=== PATIENT | male | born 1935 | race American Indian/Alaskan Native ===

== ENCOUNTER 2018-07-03 18:18 | Emergency (ER) | payer MEDICARE, MEDICAID ==
--- NOTE | 2018-07-03 18:58 | Emergency Department Report ---
Blank Doc - Documentation Documentation: pt presents with BLE edema and BLE pain that began two days ago PMHx none no daily meds no allergies to medications +smoker non drinker no drug use
[2018-07-03 19:30] LABS: Basophils # (Auto) 0.1 K/mm3 (0.0-0.1); Basophils % (Auto) 1.9 % (0.0-1.8); Eosinophils # (Auto) 0.1 K/mm3 (0.0-0.4); Eosinophils % (Auto) 1.1 % (0.0-4.3); Hematocrit 38.8 % (35.5-45.6); Hemoglobin 12.6 gm/dl (11.8-15.2); Lymphocytes # (Auto) 1.8 K/mm3 (1.2-5.4); Lymphocytes % (Auto) 26.7 % (13.4-35.0); Mean Corpuscular HGB Conc 33 % (32-34); Mean Corpuscular Volume 87 fl (84-94); Monocytes # (Auto) 0.6 K/mm3 (0.0-0.8); Monocytes % (Auto) 8.5 % (0.0-7.3); Platelet Count 251 K/mm3 (140-440); Red Blood Count 4.47 M/mm3 (3.65-5.03); Red Cell Distribution Width 15.9 % (13.2-15.2)
[2018-07-03 19:46] LABS: Alanine Aminotransferase 11 units/L (7-56); Albumin 4.2 g/dL (3.9-5); BUN/Creatinine Ratio 13; Blood Urea Nitrogen 14 mg/dL (9-20); Calcium 8.9 mg/dL (8.4-10.2); Hemolysis Index 10
[2018-07-03] MEDS ORDERED: NORCO 5/325 PO ONE (20:47)
[2018-07-03] MEDS ORDERED: LASIX IM ONE (20:48)
--- NOTE | 2018-07-03 20:59 | Emergency Department Report ---
ED Extremity Problem HPI - General Chief complaint: Extremity Injury, Lower Stated complaint: LEG PAIN Time Seen by Provider: 07/03/18 18:57 Source: patient Mode of arrival: Wheelchair Limitations: No Limitations - History of Present Illness Initial comments: Patient is a 2-year-old male with a past smoker history of COPD and hypertension who is complaining of lower cavity edema and pain. Patient states that over the last 2-3 days he's noticed increased swelling to his lower extremities bilaterally. Patient states he has pain in the left leg it is a tight feeling in the right. Both are swollen about the same amount. Patient de nies chest pain shortness of breath fevers chills nausea vomiting or diarrhea at this time. Patient states this is happened in the past however it decreased on its own. He did not have to seek any medical attention. Patient states that the swelling has been persistent for the last 2 days and seems to the group growing bigger about a minute. - Related Data Home Medications Medication Instructions Recorded Confirmed Last Taken Lisinopril/Hydrochlorothiazide 1 tab PO QDAY 02/12/13 02/12/13 02/12/13 [Zestoretic 20-25 mg] Metoprolol [Lopressor] 50 mg PO QDAY 02/12/13 02/12/13 02/12/13 Previous Rx's Medication Instructions Recorded Last Taken Type Amlodipine Besylate [Norvasc] 5 mg PO DAILY #30 tablet 07/03/18 Unknown Rx Furosemide [Lasix] 20 mg PO QDAY #7 tablet 07/03/18 Unknown Rx HYDROcodone/APAP 5-325 [[place] 1 each PO Q6HR PRN #10 tablet 07/03/18 Unknown Rx 5/325] Allergies Allergy/AdvReac Type Severity Reaction Status Date / Time No Known Allergies Allergy Verified 07/03/18 18:19 ED Review of Systems ROS: Stated complaint: LEG PAIN Other details as noted in HPI Comment: All other systems reviewed and negative ED Past Medical Hx - Past Medical History Hx Hypertension: Yes Hx COPD: Yes - Social History Smoking Status: Never Smoker Substance Use Type: None - Medications Home Medications: Home Medications Medication Instructions Recorded Confirmed Last Taken Type Lisinopril/Hydrochlorothiazide 1 tab PO QDAY 02/12/13 02/12/13 02/12/13 History [Zestoretic 20-25 mg] Metoprolol [Lopressor] 50 mg PO QDAY 02/12/13 02/12/13 02/12/13 History Amlodipine Besylate [Norvasc] 5 mg PO DAILY #30 tablet 07/03/18 Unknown Rx Furosemide [Lasix] 20 mg PO QDAY #7 tablet 07/03/18 Unknown Rx HYDROcodone/APAP 5-325 [[place] 1 each PO Q6HR PRN #10 tablet 07/03/18 Unknown Rx 5/325] ED Physical Exam - General Limitations: No Limitations General appearance: alert, in no apparent distress - Head Head exam: Present: atraumatic, normocephalic - Eye Eye exam: Present: normal appearance - ENT ENT exam: Present: normal orophraynx, mucous membranes moist - Neck Neck exam: Present: normal inspection - Respiratory Respiratory exam: Present: normal lung sounds bilaterally. Absent: respiratory distress, wheezes, rales, rhonchi - Cardiovascular Cardiovascular Exam: Present: regular rate, normal rhythm. Absent: systolic murmur, diastolic murmur, rubs, gallop - GI/Abdominal GI/Abdominal exam: Present: soft, normal bowel sounds. Absent: distended, tenderness, guarding, rebound - Rectal Rectal exam: Present: deferred - Extremities Exam Extremities exam: Present: normal inspection, other (patient with bilateral lower extremity edema is 3+ all the way to the knee. There is some broken skin with serous drainage on the anterior left agarwal.) - Back Exam Back exam: Present: normal inspection - Neurological Exam Neurological exam: Present: alert, oriented X3 - Psychiatric Psychiatric exam: Present: normal affect, normal mood - Skin Skin exam: Present: warm, dry, intact, normal color. Absent: rash ED Course Vital Signs 07/03/18 18:57 Temperature 97.9 F Pulse Rate 99 H Respiratory 16 Rate Blood Pressure 151/80 [Left] O2 Sat by Pulse 100 Oximetry ED Medical Decision Making - Lab Data Result diagrams: 07/03/18 19:13 07/03/18 19:13 Lab Results 07/03/18 07/03/18 07/03/18 Range/Units 19:13 19:13 20:53 WBC 6.8 (4.5-11.0) K/mm3 RBC 4.47 (3.65-5.03) M/mm3 Hgb 12.6 (11.8-15.2) gm/dl Hct 38.8 (35.5-45.6) % MCV 87 (84-94) fl MCH 28 (28-32) pg MCHC 33 (32-34) % RDW 15.9 H (13.2-15.2) % Plt Count 251 (140-440) K/mm3 Lymph % (Auto) 26.7 (13.4-35.0) % [place] % (Auto) 8.5 H (0.0-7.3) % Eos % (Auto) 1.1 (0.0-4.3) % Baso % (Auto) 1.9 H (0.0-1.8) % Lymph # 1.8 (1.2-5.4) K/mm3 [place] # 0.6 (0.0-0.8) K/mm3 Eos # 0.1 (0.0-0.4) K/mm3 Baso # 0.1 (0.0-0.1) K/mm3 Seg Neutrophils % 61.8 (40.0-70.0) % Seg Neutrophils # 4.2 (1.8-7.7) K/mm3 D-Dimer 224.56 (0-234) ng/mlDDU Sodium 140 (137-145) mmol/L Potassium 4.1 (3.6-5.0) mmol/L Chloride 104.3 (98-107) mmol/L Carbon Dioxide 25 (22-30) mmol/L Anion Gap 15 mmol/L BUN 14 (9-20) mg/dL Creatinine 1.1 (0.8-1.5) mg/dL Estimated GFR > 60 ml/min BUN/Creatinine Ratio 13 % Glucose 103 H (75-100) mg/dL Calcium 8.9 (8.4-10.2) mg/dL Total Bilirubin 0.20 (0.1-1.2) mg/dL AST 18 (5-40) units/L ALT 11 (7-56) units/L Alkaline Phosphatase 70 (35-129) units/L NT-Pro-B Natriuret Pep 190.9 (0-900) pg/mL Total Protein 7.3 (6.3-8.2) g/dL Albumin 4.2 (3.9-5) g/dL Albumin/Globulin Ratio 1.4 % - Medical Decision Making Patient is a 2-year-old -[place] male with lower extremity edema. Patient does have some breaks in the skin is small abrasion on the left agarwal which is likely the cause of his increased pain in this leg. The patient has normal white count there is no warmth or erythema associated with the edema on either leg. I do not believe the patient has cellulitis at this time. Ddimer wnl thus making DVT very unlikely Patient's does have a a poor diet and states he does eat salty foods. This and his untreated high blood pressure likely causes of the patient's edema. Patient be started on a course of Lasix as well as restarted on blood pressure medications. Patient given primary care follow- up. given Dr. Barrett Camarena for primary care. Patient discharged home in stable condition. Critical care attestation.: If time is entered above; I have spent that time in minutes in the direct care of this critically ill patient, excluding procedure time. ED Disposition Clinical Impression: Leg edema, Hypertensive urgency Disposition: DC-01 TO HOME OR SELFCARE Is pt being admited?: No Does the pt Need Aspirin: No Condition: Stable Instructions: Hypertension (ED), Leg Edema (ED), Low Sodium Diet (ED) Referrals: BARRETT CAMARENA MD [Staff Physician] - 3-5 Days HUGH CONNELL [Other] - 3-5 Days Time of Disposition: 21:43
[2018-07-03] MEDS ORDERED: CATAPRES PO ONE (21:40)
[2018-07-03 22:36] VITALS: BP 198/89
== END 2018-07-03 22:35 | disposition home or self-care (01) ==
LOC: ED 18:18
DX: R60.0 Localized edema (principal); I16.0 Hypertensive urgency; J44.9 Chronic obstructive pulmonary disease, unspecified; Z79.899 Other long term (current) drug therapy
CPT/HCPCS: 36415; 80053; 83880; 85025; 85379; 96372; 99283; J1940

== ENCOUNTER 2018-08-22 21:02 | Inpatient (IN) | payer MEDICARE ==
[2018-08-22] MEDS ORDERED: CLEOCIN 300 MG/50 mL 300 MG/50 ML BAG IV ONE (21:49)
--- NOTE | 2018-08-22 21:50 | Emergency Department Report ---
ED Extremity Problem HPI - General Chief complaint: Extremity Problem,Nontraumatic Stated complaint: FEET PAIN/EDEMA Time Seen by Provider: 08/22/18 21:46 Source: patient Mode of arrival: Wheelchair Limitations: No Limitations - History of Present Illness Initial comments: Patient is a 82-year-old male that presents emergency room with complaints of sore on his left foot for several weeks. Patient states today the sore opened up and a smelling discharge came out. Patient also complaint of swelling to his bilateral lower extremities. Patient is complaining of pain at the site of an 8 out of 10. Patient's pain is on the left dorsal foot. Patient states the pain is better with rest and worse with movement. Patient states she has not had any care for this feet. Patient denies fever and chills. MD Complaint: extremity swelling - Related Data Home Medications Medication Instructions Recorded Confirmed Last Taken Lisinopril/Hydrochlorothiazide 1 tab PO QDAY 02/12/13 08/23/18 02/12/13 [Zestoretic 20-25 mg] Metoprolol [Lopressor] 50 mg PO QDAY 02/12/13 08/23/18 02/12/13 Previous Rx's Medication Instructions Recorded Last Taken Type Amlodipine Besylate [Norvasc] 5 mg PO DAILY #30 tablet 07/03/18 Unknown Rx Furosemide [Lasix] 20 mg PO QDAY #7 tablet 07/03/18 Unknown Rx HYDROcodone/APAP 5-325 [[place] 1 each PO Q6HR PRN #10 tablet 07/03/18 Unknown Rx 5/325] Allergies Allergy/AdvReac Type Severity Reaction Status Date / Time No Known Allergies Allergy Verified 07/03/18 18:19 ED Review of Systems ROS: Stated complaint: FEET PAIN/EDEMA Other details as noted in HPI Constitutional: denies: chills, fever Eyes: denies: eye pain, eye discharge, vision change ENT: denies: ear pain, throat pain Respiratory: denies: cough, shortness of breath, wheezing Cardiovascular: edema. denies: chest pain, palpitations Endocrine: no symptoms reported Gastrointestinal: denies: abdominal pain, nausea, diarrhea Genitourinary: denies: urgency, dysuria Musculoskeletal: denies: back pain, joint swelling, arthralgia Skin: denies: rash, lesions Neurological: denies: headache, weakness, paresthesias Psychiatric: denies: anxiety, depression Hematological/Lymphatic: denies: easy bleeding, easy bruising ED Past Medical Hx - Past Medical History Previous Medical History?: Yes Hx Hypertension: Yes Hx COPD: Yes - Surgical History Past Surgical History?: No - Family History Family history: no significant - Social History Smoking Status: Current Every Day Smoker Substance Use Type: None - Medications Home Medications: Home Medications Medication Instructions Recorded Confirmed Last Taken Type Lisinopril/Hydrochlorothiazide 1 tab PO QDAY 02/12/13 08/23/18 02/12/13 History [Zestoretic 20-25 mg] Metoprolol [Lopressor] 50 mg PO QDAY 02/12/13 08/23/18 02/12/13 History Amlodipine Besylate [Norvasc] 5 mg PO DAILY #30 tablet 07/03/18 08/23/18 Unknown Rx Furosemide [Lasix] 20 mg PO QDAY #7 tablet 07/03/18 08/23/18 Unknown Rx HYDROcodone/APAP 5-325 [[place] 1 each PO Q6HR PRN #10 tablet 07/03/18 08/23/18 Unknown Rx 5/325] ED Physical Exam - General Limitations: No Limitations General appearance: alert, in no apparent distress - Head Head exam: Present: atraumatic, normocephalic - Eye Eye exam: Present: normal appearance - ENT ENT exam: Present: mucous membranes moist - Neck Neck exam: Present: normal inspection - Respiratory Respiratory exam: Present: normal lung sounds bilaterally. Absent: respiratory distress, wheezes, rales - Cardiovascular Cardiovascular Exam: Present: regular rate, normal rhythm. Absent: systolic murmur, diastolic murmur, rubs, gallop - GI/Abdominal GI/Abdominal exam: Present: soft, normal bowel sounds. Absent: distended, tenderness, guarding - Rectal Rectal exam: Present: deferred - Extremities Exam Extremities exam: Present: tenderness (left foot), pedal edema. Absent: calf tenderness - Back Exam Back exam: Present: normal inspection - Neurological Exam Neurological exam: Present: alert, oriented X3 - Psychiatric Psychiatric exam: Present: normal affect, normal mood - Skin Skin exam: Present: warm, dry, other (lateral lower extremity edema. Left foot has a large open ulcer with purulent discharge and a foul-smelling wound). Absent: rash ED Course Vital Signs 08/22/18 08/22/18 08/22/18 21:04 21:06 22:45 Temperature 97.9 F 97.9 F Pulse Rate 77 77 Respiratory 18 18 Rate Blood Pressure 184/78 184/78 Blood Pressure [Left] O2 Sat by Pulse 98 98 99 Oximetry 08/22/18 08/23/18 23:00 01:00 Temperature Pulse Rate 74 67 Respiratory 13 18 Rate Blood Pressure Blood Pressure 176/95 188/95 [Left] O2 Sat by Pulse 98 98 Oximetry - Reevaluation(s) Reevaluation #1: Discussed all results with patient. Patient will be admitted to the hospitalist service. Patient agrees to plan of care. 08/22/18 23:25 - Consultations Consultation #1: Hospitalist consulted for admission. Hospitalist to admit patient. Hospitalist to assume care patient. 08/22/18 23:25 ED Medical Decision Making - Lab Data Result diagrams: 08/22/18 21:53 08/22/18 21:53 - Medical Decision Making Patient is a 82-year-old male that is emergency room with left foot ulcer and bilateral lower stomach swelling. Foot ulcer has a foul-smelling wound bed and a purulent discharge. Patient will be admitted to the hospitalist service for further evaluation treatment. Patient given IV antibiotic. His labs unremarkable. - Differential Diagnosis foot ulcer. Infection. Critical Care Time: Yes Critical care attestation.: If time is entered above; I have spent that time in minutes in the direct care of this critically ill patient, excluding procedure time. 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
[2018-08-22 22:13] LABS: Basophils % (Auto) 0.5 % (0.0-1.8); Eosinophils # (Auto) 0.1 K/mm3 (0.0-0.4); Eosinophils % (Auto) 1.7 % (0.0-4.3); Hemoglobin 10.6 gm/dl (11.8-15.2); Lymphocytes # (Auto) 1.4 K/mm3 (1.2-5.4); Lymphocytes % (Auto) 24.1 % (13.4-35.0); Mean Corpuscular HGB Conc 32 % (32-34); Mean Corpuscular Volume 84 fl (84-94); Monocytes # (Auto) 0.8 K/mm3 (0.0-0.8); Platelet Count 294 K/mm3 (140-440); Red Blood Count 3.93 M/mm3 (3.65-5.03); Red Cell Distribution Width 18.8 % (13.2-15.2)
[2018-08-22 22:29] LABS: Albumin 3.4 g/dL (3.9-5); BUN/Creatinine Ratio 14; Blood Urea Nitrogen 11 mg/dL (9-20); Calcium 8.5 mg/dL (8.4-10.2); Hemolysis Index 11
[2018-08-22 22:31] LABS: Alanine Aminotransferase < 5 units/L (7-56)
--- NOTE | 2018-08-22 23:50 | History and Physical Report ---
<LISA LOVE - Last Filed: 08/23/18 04:12> History of Present Illness Date of examination: 08/22/18 Date of admission: 08/22/2018 Chief complaint: Left foot wounds 3 months History of present illness: Patient is a 82-year-old male with PMHx of HTN, peripheral PVD who presents to the ER with complaints of left foot pain wounds for at least 3 months. Patient states that he developed the wounds about 3 months ago, but for the past several weeks they have been getting worse. Pt states that the wound have been draining a foul smell Bloody drainage, he decided to come to the ER for elevation. Patient states that he has lesions on both foot but the left is worse than the right foot. He denies any injury, denies any fever, denies chills, denies diabetes, patient was seen in the ER within insensitive left foot wound that spread from the left foot to the mid leg, appear necrotic, pt also c/o pain in the left foot, she reports inability to bear any weight in the the affected foot. Pt was seen in he ER and admitted for further evaluation and treatment. Past History Past Medical History: hypertension, PVD Past Surgical History: No surgical history Social history: no significant social history Family history: no significant family history Medications and Allergies Allergies Allergy/AdvReac Type Severity Reaction Status Date / Time No Known Allergies Allergy Verified 07/03/18 18:19 Home Medications Medication Instructions Recorded Confirmed Last Taken Type Lisinopril/Hydrochlorothiazide 1 tab PO QDAY 02/12/13 08/23/18 02/12/13 History [Zestoretic 20-25 mg] Metoprolol [Lopressor] 50 mg PO QDAY 02/12/13 08/23/18 02/12/13 History Amlodipine Besylate [Norvasc] 5 mg PO DAILY #30 tablet 07/03/18 08/23/18 Unknown Rx Furosemide [Lasix] 20 mg PO QDAY #7 tablet 07/03/18 08/23/18 Unknown Rx HYDROcodone/APAP 5-325 [[place] 1 each PO Q6HR PRN #10 tablet 07/03/18 08/23/18 Unknown Rx 5/325] Aspirin EC 81 mg PO QDAY #30 tablet. 08/24/18 Unknown Rx Clopidogrel [Plavix] 75 mg PO QDAY #30 tablet 08/24/18 Unknown Rx Review of Systems All systems: negative Integumentary: darkening of skin, color changes, other ( ) Exam - Constitutional Vitals: Temp Pulse Resp BP Pulse Ox 97.9 F 77 18 184/78 99 08/22/18 21:06 08/22/18 21:06 08/22/18 21:06 08/22/18 21:06 08/22/18 22:45 General appearance: Present: no acute distress - EENT Eyes: Present: PERRL, EOM intact ENT: hearing intact - Neck Neck: Present: supple, normal ROM - Respiratory Respiratory effort: normal Respiratory: bilateral: CTA - Cardiovascular Rhythm: regular Heart Sounds: Present: S1 & S2 - Extremities Extremities: no ischemia, No edema Peripheral Pulses: within normal limits - Abdominal General gastrointestinal: Present: non-tender, non-distended Male genitourinary: Present: deferred - Rectal Rectal Exam: deferred - Integumentary Integumentary: Present: warm, dry - Musculoskeletal Musculoskeletal: strength equal bilaterally - Psychiatric Psychiatric: cooperative - Neurologic Neurologic: moves all extremities Results - Labs CBC & Chem 7: 08/22/18 21:53 08/22/18 21:53 Labs: Laboratory Last Values WBC 5.9 K/mm3 (4.5-11.0) 08/22/18 21:53 RBC 3.93 M/mm3 (3.65-5.03) 08/22/18 21:53 Hgb 10.6 gm/dl (11.8-15.2) L 08/22/18 21:53 Hct 33.0 % (35.5-45.6) L 08/22/18 21:53 MCV 84 fl (84-94) 08/22/18 21:53 MCH 27 pg (28-32) L 08/22/18 21:53 MCHC 32 % (32-34) 08/22/18 21:53 RDW 18.8 % (13.2-15.2) H 08/22/18 21:53 Plt Count 294 K/mm3 (140-440) 08/22/18 21:53 Lymph % (Auto) 24.1 % (13.4-35.0) 08/22/18 21:53 [place] % (Auto) 14.0 % (0.0-7.3) H 08/22/18 21:53 Eos % (Auto) 1.7 % (0.0-4.3) 08/22/18 21:53 Baso % (Auto) 0.5 % (0.0-1.8) 08/22/18 21:53 Lymph # 1.4 K/mm3 (1.2-5.4) 08/22/18 21:53 [place] # 0.8 K/mm3 (0.0-0.8) 08/22/18 21:53 Eos # 0.1 K/mm3 (0.0-0.4) 08/22/18 21:53 Baso # 0.0 K/mm3 (0.0-0.1) 08/22/18 21:53 Seg Neutrophils % 59.7 % (40.0-70.0) 08/22/18 21:53 Seg Neutrophils # 3.5 K/mm3 (1.8-7.7) 08/22/18 21:53 Sodium 143 mmol/L (137-145) 08/22/18 21:53 Potassium 3.7 mmol/L (3.6-5.0) 08/22/18 21:53 Chloride 108.3 mmol/L (98-107) H 08/22/18 21:53 Carbon Dioxide 25 mmol/L (22-30) 08/22/18 21:53 13 mmol/L 08/22/18 21:53 BUN 11 mg/dL (9-20) 08/22/18 21:53 0.8 mg/dL (0.8-1.5) 08/22/18 21:53 Estimated GFR > 60 ml/min 08/22/18 21:53 14 % 08/22/18 21:53 Glucose 87 mg/dL (75-100) 08/22/18 21:53 Lactic Acid 1.40 mmol/L (0.7-2.0) 08/22/18 21:53 Calcium 8.5 mg/dL (8.4-10.2) 08/22/18 21:53 0.20 mg/dL (0.1-1.2) 08/22/18 21:53 AST 10 units/L (5-40) 08/22/18 21:53 ALT < 5 units/L (7-56) L 08/22/18 21:53 72 units/L (35-129) 08/22/18 21:53 6.7 g/dL (6.3-8.2) 08/22/18 21:53 3.4 g/dL (3.9-5) L 08/22/18 21:53 1.0 % 08/22/18 21:53 Assessment and Plan Assessment and plan: 1. Left leg wounds 2. Hypertension 3. Severe PVD Plan: Patient is admitted for left leg wounds Started on IV Zosyn and clindamycin Consults wound care for evaluation Patient may need surgical evaluation for the left wounds IV fluids for hydration Continue home meds DVT prophylaxis with Lovenox Plan of care discussed with patient's, for his understanding Patient's condition and plan of care discussed with Dr. Rico Advance Directives: Yes VTE prophylaxis?: Chemical Plan of care discussed with patient/family: Yes <TATA RICO - Last Filed: 08/25/18 23:07> History of Present Illness Date of admission: 08/22/18 23:55 Medications and Allergies Active Meds: Active Medications Acetaminophen (Tylenol) 650 mg PO Q4H PRN PRN Reason: Pain MILD(1-3)/Fever >100.5/SHORE Enoxaparin Sodium (Lovenox) 40 mg SUB-Q QDAY CHELE Furosemide (Lasix) 20 mg PO QDAY [place] Hydralazine HCl (Apresoline) 5 mg IV Q6HR PRN PRN Reason: Blood Pressure Last Admin: 08/23/18 01:19 Dose: 5 mg Documented by: Piperacillin Sod/Tazobactam Sod (Zosyn/Ns 4.5gm/100ml) 4.5 gm in 100 mls @ 200 mls/hr IV Q8H CHELE; Protocol Magnesium Hydroxide (Milk Of Magnesia) 30 ml PO Q4H PRN PRN Reason: Constipation Metoprolol Tartrate (Lopressor) 50 mg PO QDAY [place] Ondansetron HCl (Zofran) 4 mg IV Q8H PRN PRN Reason: Nausea And Vomiting Oxycodone/Acetaminophen (Percocet 5/325) 1 tab PO Q6H PRN PRN Reason: Pain, Moderate (4-6) Senna (Senokot) 8.6 mg PO Q12HR CHELE Last Admin: 08/23/18 03:12 Dose: 8.6 mg Documented by: Sodium Chloride (Sodium Chloride Flush Syringe 10 Ml) 10 ml IV BID CHELE Last Admin: 08/23/18 00:03 Dose: 10 ml Documented by: Sodium Chloride (Sodium Chloride Flush Syringe 10 Ml) 10 ml IV PRN PRN PRN Reason: LINE FLUSH Exam - Constitutional Vitals: Temp Pulse Resp BP Pulse Ox 97.9 F 67 18 188/95 98 08/22/18 21:06 08/23/18 01:00 08/23/18 01:00 08/23/18 01:00 08/23/18 01:00 Results - Labs CBC & Chem 7: 08/23/18 05:27 08/23/18 05:27 Labs: Laboratory Last Values WBC 5.9 K/mm3 (4.5-11.0) 08/22/18 21:53 RBC 3.93 M/mm3 (3.65-5.03) 08/22/18 21:53 Hgb 10.6 gm/dl (11.8-15.2) L 08/22/18 21:53 Hct 33.0 % (35.5-45.6) L 08/22/18 21:53 MCV 84 fl (84-94) 08/22/18 21:53 MCH 27 pg (28-32) L 08/22/18 21:53 MCHC 32 % (32-34) 08/22/18 21:53 RDW 18.8 % (13.2-15.2) H 08/22/18 21:53 Plt Count 294 K/mm3 (140-440) 08/22/18 21:53 Lymph % (Auto) 24.1 % (13.4-35.0) 08/22/18 21:53 [place] % (Auto) 14.0 % (0.0-7.3) H 08/22/18 21:53 Eos % (Auto) 1.7 % (0.0-4.3) 08/22/18 21:53 Baso % (Auto) 0.5 % (0.0-1.8) 08/22/18 21:53 Lymph # 1.4 K/mm3 (1.2-5.4) 08/22/18 21:53 [place] # 0.8 K/mm3 (0.0-0.8) 08/22/18 21:53 Eos # 0.1 K/mm3 (0.0-0.4) 08/22/18 21:53 Baso # 0.0 K/mm3 (0.0-0.1) 08/22/18 21:53 Seg Neutrophils % 59.7 % (40.0-70.0) 08/22/18 21:53 Seg Neutrophils # 3.5 K/mm3 (1.8-7.7) 08/22/18 21:53 Sodium 143 mmol/L (137-145) 08/22/18 21:53 Potassium 3.7 mmol/L (3.6-5.0) 08/22/18 21:53 Chloride 108.3 mmol/L (98-107) H 08/22/18 21:53 Carbon Dioxide 25 mmol/L (22-30) 08/22/18 21:53 13 mmol/L 08/22/18 21:53 BUN 11 mg/dL (9-20) 08/22/18 21:53 0.8 mg/dL (0.8-1.5) 08/22/18 21:53 Estimated GFR > 60 ml/min 08/22/18 21:53 14 % 08/22/18 21:53 Glucose 87 mg/dL (75-100) 08/22/18 21:53 Lactic Acid 1.40 mmol/L (0.7-2.0) 08/22/18 21:53 Calcium 8.5 mg/dL (8.4-10.2) 08/22/18 21:53 0.20 mg/dL (0.1-1.2) 08/22/18 21:53 AST 10 units/L (5-40) 08/22/18 21:53 ALT < 5 units/L (7-56) L 08/22/18 21:53 72 units/L (35-129) 08/22/18 21:53 6.7 g/dL (6.3-8.2) 08/22/18 21:53 3.4 g/dL (3.9-5) L 08/22/18 21:53 1.0 % 08/22/18 21:53 Assessment and Plan Assessment and plan: 82-year-old history of hypertension, COPD, cirrhosis or emergency room for evaluation of left foot ulcer which he had for 1 month. 2 days ago he b anged the left foot on the car, there is a purulent foul-smelling discharge. He status post outpatient antibiotic, cant recall what medication he took. agree with anabel moss IVF, patient with lower extremity edema. He has sedentary lifestyle, r/o dvt. Consult ID
[2018-08-22] MEDS ORDERED: TYLENOL PO PRN (23:51)
[2018-08-22] MEDS ORDERED: ZOFRAN IV PRN (23:51)
[2018-08-22] MEDS ORDERED: PERCOCET 5/325 PO PRN (23:51)
[2018-08-22] MEDS ORDERED: MILK OF MAGNESIA PO PRN (23:51)
[2018-08-22] MEDS ORDERED: SODIUM CHLORIDE FLUSH SYRINGE 10 ML IV PRN (23:51)
[2018-08-23] MEDS: SODIUM CHLORIDE FLUSH SYRINGE 10 ML IV SCH ×3 (00:03→22:11)
[2018-08-23] MEDS ORDERED: ZOSYN/NS 4.5GM/100ML 4.5 GM/100 ML VIAL IV ONE (00:56)
[2018-08-23] MEDS ORDERED: APRESOLINE ONE (01:17)
[2018-08-23] MEDS: APRESOLINE IV PRN (01:19)
[2018-08-23] MEDS: SENOKOT PO SCH ×3 (03:12→22:05)
[2018-08-23] MEDS ORDERED: ZOSYN/NS 4.5GM/100ML 4.5 GM/100 ML VIAL IV SCH ×2 (06:00)
[2018-08-23 06:14] LABS: Basophils % (Auto) 0.3 % (0.0-1.8); Eosinophils # (Auto) 0.1 K/mm3 (0.0-0.4); Eosinophils % (Auto) 0.7 % (0.0-4.3); Hematocrit 35.3 % (35.5-45.6); Hemoglobin 11.5 gm/dl (11.8-15.2); Lymphocytes # (Auto) 1.1 K/mm3 (1.2-5.4); Lymphocytes % (Auto) 13.2 % (13.4-35.0); Mean Corpuscular HGB Conc 33 % (32-34); Mean Corpuscular Volume 83 fl (84-94); Monocytes # (Auto) 0.9 K/mm3 (0.0-0.8); Monocytes % (Auto) 10.6 % (0.0-7.3); Platelet Count 298 K/mm3 (140-440); Red Blood Count 4.25 M/mm3 (3.65-5.03); Red Cell Distribution Width 18.6 % (13.2-15.2)
[2018-08-23 06:19] LABS: BUN/Creatinine Ratio 11; Blood Urea Nitrogen 9 mg/dL (9-20); Calcium 8.5 mg/dL (8.4-10.2); Hemolysis Index 5
[2018-08-23] MEDS ORDERED: NON-FORMULARY (Lisinopril/Hydrochlorothiazide [Zestoretic 20-25 Mg] 1 TAB) PO SCH (10:00)
[2018-08-23] MEDS: LASIX PO SCH (10:50)
[2018-08-23] MEDS: NORVASC PO SCH (10:51)
[2018-08-23] MEDS: LOPRESSOR PO SCH (10:53)
[2018-08-23] MEDS: LOVENOX SUB-Q SCH (10:53)
--- NOTE | 2018-08-23 11:55 | Vascular Lab Report ---
BILATERAL DUPLEX DOPPLER LOWER EXTREMITY VEINS INDICATION: Bilateral lower extremity edema for one week, left foot ulcer for 3 months TECHNIQUE: Duplex doppler imaging was performed through the veins of both lower extremities using tessa ous compression and other maneuvers. COMPARISON: None available. FINDINGS: Right Common Femoral vein: Negative. Right Superficial Femoral vein: Negative. Right Popliteal vein: Negative. Right Calf veins: Negative. Left Common Femoral vein: Negative. Left Superficial Femoral vein: Negative. Left Popliteal vein: Negative. Left Calf veins: Negative. Additional findings: Bilateral soft tissue edema is noted. IMPRESSION: No sonographic evidence for DVT in either lower extremity. Signer Name: Chico Pérez MD Signed: 08/23/2018 11:51 AM Workstation Name: [id number]
--- NOTE | 2018-08-23 12:26 | Consultation ---
History of Present Illness - Reason for Consult Consult date: 08/23/18 B/L LE wounds Requesting physician: LISA LOVE - History of Present Illness The patient is an 82-year-old male with hypertension, peripheral vascular disease who came into the emergency room yesterday with complaints of left foot pain and wounds going on for the last 3 months. He denies any direct trauma to the foot. He is a poor historian. He states that he also took some antibiotics prior to admission. He reports increasing pain in his left foot. Denies any fever or chills. He smokes a cigar every other day. He was admitted and started empirically on Zosyn. ID was consulted for antibiotic recs. Review of Systems: General: no fevers,chills or rigors HEENT: no new visual disturbance Respiratory: No cough, sputum, hemoptysis or shortness of breath Cardiovascular: No chest pain, syncope Gastrointestinal: No nausea, vomiting or diarrhea Genitourinary: No dysuria or hematuria Musculoskeletal: No new or worsening neck pain or back pain Neurologic: No headaches, seizures Hematologic: No easy bruising or bleeding Endocrine: No night sweats or acute weight loss Skin: negative for rash, jaundice Psychiatric: No suicidal or homicidal ideation Past History Past Medical History: hypertension, PVD Past Surgical History: No surgical history Social history: no significant social history Family history: no significant family history Medications and Allergies Allergies Allergy/AdvReac Type Severity Reaction Status Date / Time No Known Allergies Allergy Verified 07/03/18 18:19 Home Medications Medication Instructions Recorded Confirmed Last Taken Type Lisinopril/Hydrochlorothiazide 1 tab PO QDAY 02/12/13 08/23/18 02/12/13 History [Zestoretic 20-25 mg] Metoprolol [Lopressor] 50 mg PO QDAY 02/12/13 08/23/18 02/12/13 History Amlodipine Besylate [Norvasc] 5 mg PO DAILY #30 tablet 07/03/18 08/23/18 Unknown Rx Furosemide [Lasix] 20 mg PO QDAY #7 tablet 07/03/18 08/23/18 Unknown Rx HYDROcodone/APAP 5-325 [[place] 1 each PO Q6HR PRN #10 tablet 07/03/18 08/23/18 Unknown Rx 5/325] Active Meds: Active Medications Acetaminophen (Tylenol) 650 mg PO Q4H PRN PRN Reason: Pain MILD(1-3)/Fever >100.5/SHORE Acetaminophen/Hydrocodone Bitart ([place] 5/325) 1 each PO Q6H PRN PRN Reason: Pain (7-10) Amlodipine Besylate (Norvasc) 5 mg PO DAILY [facility] Last Admin: 08/23/18 10:51 Dose: 5 mg Documented by: Enoxaparin Sodium (Lovenox) 40 mg SUB-Q QDAY [facility] Last Admin: 08/23/18 10:53 Dose: 40 mg Documented by: Furosemide (Lasix) 20 mg PO QDAY [facility] Last Admin: 08/23/18 10:50 Dose: 20 mg Documented by: Hydralazine HCl (Apresoline) 5 mg IV Q6HR PRN PRN Reason: Blood Pressure Last Admin: 08/23/18 01:19 Dose: 5 mg Documented by: Cefepime HCl (Maxipime/Ns 1 Gm/100 Ml) 1 gm in 100 mls @ 200 mls/hr IV Q8HR [facility]; Protocol Magnesium Hydroxide (Milk Of Magnesia) 30 ml PO Q4H PRN PRN Reason: Constipation Metoprolol Tartrate (Lopressor) 50 mg PO QDAY [facility] Last Admin: 08/23/18 10:53 Dose: 50 mg Documented by: Ondansetron HCl (Zofran) 4 mg IV Q8H PRN PRN Reason: Nausea And Vomiting Oxycodone/Acetaminophen (Percocet 5/325) 1 tab PO Q6H PRN PRN Reason: Pain, Moderate (4-6) Senna (Senokot) 8.6 mg PO Q12HR [facility] Last Admin: 08/23/18 10:49 Dose: 8.6 mg Documented by: Sodium Chloride (Sodium Chloride Flush Syringe 10 Ml) 10 ml IV BID [facility] Last Admin: 08/23/18 10:54 Dose: 10 ml Documented by: Sodium Chloride (Sodium Chloride Flush Syringe 10 Ml) 10 ml IV PRN PRN PRN Reason: LINE FLUSH Physical Examination - Physical Exam Narrative exam: Physical Exam: Constitutional: Alert, cooperative. No acute distress Head, Ears, Nose: Normocephalic, atraumatic. External ears, nose normal Eyes: Conjunctivae/corneas clear. No icterus. No ptosis. Neck: Supple, no meningeal signs Oral: edentulous, no thrush Cardiovascular: S1, S2 normal. Respiratory: Good air entry, clear to auscultation bilaterally GI: Soft, non-tender; bowel sounds normal. No peritoneal signs Musculoskeletal: Left foot with dry, scaly and hyperkeratotic skin, superficial wounds with slight warmth and tenderness. Bilateral hyperkeratotic toenails. Skin: No rash or abscess Hem/Lymphatic: No palpable cervical or supraclavicular nodes. No lymphangitis Psych: Mood ok. Affect normal Neurological: Awake, alert, oriented. No gross abnormality - Constitutional Vitals: Vital Signs Temp Pulse Resp BP Pulse Ox 97.8 F 72 18 162/72 100 08/23/18 04:24 08/23/18 10:53 08/23/18 10:52 08/23/18 10:53 08/23/18 10:52 Temperature -Last 24 Hours Temperature 97.8 F Temperature 97.4 F Temperature 97.9 F Temperature 97.9 F Results - Labs CBC & Chem 7: 08/23/18 05:27 08/23/18 05:27 Labs: Abnormal lab results 08/22/18 08/22/18 08/23/18 Range/Units 21:53 21:53 05:27 Hgb 10.6 L 11.5 L (11.8-15.2) gm/dl Hct 33.0 L 35.3 L (35.5-45.6) % MCV 83 L (84-94) fl MCH 27 L 27 L (28-32) pg RDW 18.8 H 18.6 H (13.2-15.2) % Lymph % (Auto) 13.2 L (13.4-35.0) % [place] % (Auto) 14.0 H 10.6 H (0.0-7.3) % Lymph # 1.1 L (1.2-5.4) K/mm3 [place] # 0.9 H (0.0-0.8) K/mm3 Seg Neutrophils % 75.2 H (40.0-70.0) % Chloride 108.3 H (98-107) mmol/L ALT < 5 L (7-56) units/L Albumin 3.4 L (3.9-5) g/dL Assessment and Plan Cultures: None this admission. A/P: 82-year-old male with hypertension, peripheral vascular disease, cigar smoker admitted with: 1) Left foot cellulitis and superficial wounds: Poor hygiene. No fever or leukocytosis. Wounds are superficial, no concern for underlying deep infection or osteomyelitis. Agree with checking for DVT scan. Also get arterial duplex to rule out underlying ischemia. Mainstay will be wound care. Short course of antibiotics. 2) Peripheral vascular disease Recs: Needs wound care Treat with empiric IV cefepime and vancomycin Zosyn discontinued Follow-up DVT scan Arterial duplex also ordered to rule out underlying ischemia Katrina Marroquin MD, FACP [facility] ([facility]) C: [phone] O: [phone] F: [phone]
[2018-08-23] MEDS ORDERED: VANCOMYCIN PHARMACY TO DOSE IV SCH (13:00)
--- NOTE | 2018-08-23 14:14 | Progress Note ---
Assessment and Plan Assessment and plan: 82-year-old history of hypertension, COPD, cirrhosis or emergency room for evaluation of left foot ulcer which he had for 1 month. 2 days ago he banged the left foot on the car, there is a purulent foul-smelling discharge. He status post outpatient antibiotic, cant recall what medication he took. agree with zosyn, hold IVF, patient with lower extremity edema. He has sedentary lifestyle, r/o dvt. Consult ID 1. Left leg wounds/cellulitis cont abx, ID consult 2. Hypertension cont BP meds 3. Severe PVD Vasc sx consult, obtain vasc studies History Interval history: c/o R leg pain, foul smelling discharge, bilat pedal edema worse on right Review of systems Constitutional: No fevers, no malaise, no joint pains CVS: No chest pain, no orthopnea, GI: No abdominal pain, no diarrhea, no vomiting, no constipation Respiratory: No shortness of breath, no wheezing, no coughing Hospitalist Physical - Physical exam Narrative exam: General.: Appears well, no distress, nontoxic, unkempt HEENT: Moist mucous membranes, extraocular muscles intact, no lymphadenopathy Neck: supple Cardiac: S1-S2 heard Lungs: clear to auscultation bilaterally Abdomen: soft , nontender, nondistended, bowel sounds positive Extremities: BL LE edema worse on Right R leg is swollen, with wound with a foul smelling discharge Skin: no rash or lesions Neurologic: no gross focal deficits Psych: calm, and cooperative - Constitutional Vitals: Temp Pulse Resp BP Pulse Ox 98.1 F 66 16 155/82 99 08/23/18 12:00 08/23/18 12:00 08/23/18 12:00 08/23/18 12:00 08/23/18 12:00 General appearance: Present: no acute distress Results - Labs CBC & Chem 7: 08/23/18 05:27 08/23/18 05:27 Labs: Laboratory Last Values WBC 8.4 K/mm3 (4.5-11.0) 08/23/18 05:27 RBC 4.25 M/mm3 (3.65-5.03) 08/23/18 05:27 Hgb 11.5 gm/dl (11.8-15.2) L 08/23/18 05:27 Hct 35.3 % (35.5-45.6) L 08/23/18 05:27 MCV 83 fl (84-94) L 08/23/18 05:27 MCH 27 pg (28-32) L 08/23/18 05:27 MCHC 33 % (32-34) 08/23/18 05:27 RDW 18.6 % (13.2-15.2) H 08/23/18 05:27 Plt Count 298 K/mm3 (140-440) 08/23/18 05:27 Lymph % (Auto) 13.2 % (13.4-35.0) L 08/23/18 05:27 [place] % (Auto) 10.6 % (0.0-7.3) H 08/23/18 05:27 Eos % (Auto) 0.7 % (0.0-4.3) 08/23/18 05:27 Baso % (Auto) 0.3 % (0.0-1.8) 08/23/18 05:27 Lymph # 1.1 K/mm3 (1.2-5.4) L 08/23/18 05:27 [place] # 0.9 K/mm3 (0.0-0.8) H 08/23/18 05:27 Eos # 0.1 K/mm3 (0.0-0.4) 08/23/18 05:27 Baso # 0.0 K/mm3 (0.0-0.1) 08/23/18 05:27 Seg Neutrophils % 75.2 % (40.0-70.0) H 08/23/18 05:27 Seg Neutrophils # 6.3 K/mm3 (1.8-7.7) 08/23/18 05:27 Sodium 142 mmol/L (137-145) 08/23/18 05:27 Potassium 3.6 mmol/L (3.6-5.0) 08/23/18 05:27 Chloride 106.2 mmol/L (98-107) 08/23/18 05:27 Carbon Dioxide 26 mmol/L (22-30) 08/23/18 05:27 13 mmol/L 08/23/18 05:27 BUN 9 mg/dL (9-20) 08/23/18 05:27 0.8 mg/dL (0.8-1.5) 08/23/18 05:27 Estimated GFR > 60 ml/min 08/23/18 05:27 11 % 08/23/18 05:27 Glucose 95 mg/dL (75-100) 08/23/18 05:27 Lactic Acid 1.40 mmol/L (0.7-2.0) 08/22/18 21:53 Calcium 8.5 mg/dL (8.4-10.2) 08/23/18 05:27 0.20 mg/dL (0.1-1.2) 08/22/18 21:53 AST 10 units/L (5-40) 08/22/18 21:53 ALT < 5 units/L (7-56) L 08/22/18 21:53 72 units/L (35-129) 08/22/18 21:53 6.7 g/dL (6.3-8.2) 08/22/18 21:53 3.4 g/dL (3.9-5) L 08/22/18 21:53 1.0 % 08/22/18 21:53 Active Medications - Current Medications Current Medications: Generic Name Dose Route Start Last Admin Trade Name Freq PRN Reason Stop Dose Admin Acetaminophen 650 mg 08/22/18 23:51 Tylenol PO Q4H PRN Pain MILD(1-3)/Fever >100.5/SHORE Acetaminophen/Hydrocodone Bitart 1 each 08/23/18 06:22 [place] 5/325 PO Q6H PRN Pain (7-10) Amlodipine Besylate 5 mg 08/23/18 10:00 08/23/18 10:51 Norvasc PO 5 mg DAILY [facility] Administration Enoxaparin Sodium 40 mg 08/23/18 10:00 08/23/18 10:53 Lovenox SUB-Q 40 mg QDAY [facility] Administration Furosemide 20 mg 08/23/18 10:00 08/23/18 10:50 Lasix PO 20 mg QDAY [facility] Administration Hydralazine HCl 5 mg 08/23/18 01:13 08/23/18 01:19 Apresoline IV 5 mg Q6HR PRN Administration Blood Pressure Cefepime HCl 1 gm in 100 mls @ 200 mls/hr 08/23/18 14:00 Maxipime/Ns 1 Gm/100 Ml IV Q8HR [facility] Protocol Vancomycin HCl 1,500 mg/ 530 mls @ 333.333 mls/hr 08/23/18 15:00 Sodium Chloride IV 08/23/18 16:35 ONCE ONE Vancomycin HCl 1,500 mg/ 530 mls @ 333.333 mls/hr 08/24/18 16:00 Sodium Chloride IV 08/24/18 17:35 Q24HR@1600 ONE Magnesium Hydroxide 30 ml 08/22/18 23:51 Milk Of Magnesia PO Q4H PRN Constipation Metoprolol Tartrate 50 mg 08/23/18 10:00 08/23/18 10:53 Lopressor PO 50 mg QDAY [facility] Administration Ondansetron HCl 4 mg 08/22/18 23:51 Zofran IV Q8H PRN Nausea And Vomiting Oxycodone/Acetaminophen 1 tab 08/22/18 23:51 Percocet 5/325 PO Q6H PRN Pain, Moderate (4-6) Senna 8.6 mg 08/22/18 23:45 08/23/18 10:49 Senokot PO 8.6 mg Q12HR [facility] Administration Sodium Chloride 10 ml 08/22/18 23:45 08/23/18 10:54 Sodium Chloride Flush Syringe 10 Ml IV 10 ml BID [facility] Administration Sodium Chloride 10 ml 08/22/18 23:51 Sodium Chloride Flush Syringe 10 Ml IV PRN PRN LINE FLUSH
[2018-08-23] MEDS ORDERED: VANCOMYCIN 1,500 MG in NACL 0.9% 500 ML 500 ML IV ONE (15:00)
[2018-08-23] MEDS: MAXIPIME/NS 1 GM/100 ML 1 GM/100 ML BAG IV SCH ×2 (15:27→22:05)
[2018-08-23] MEDS ORDERED: VANCOMYCIN 1,500 MG in NACL 0.9% 500 ML 500 ML IV SCH (16:00)
--- NOTE | 2018-08-23 20:58 | Vascular Lab Report ---
Bilateral Duplex arterial Doppler examination of the lower extremities with spectral analysis INDICATION: Bilateral lower extremity wounds including a left foot ulcer for 2 months Atherosclerotic changes are seen bilaterally. Flow is noted to the dorsalis pedis arteries bilaterall y. In the right lower extremity no significant focal velocity change is seen to strongly suggest a hemod ynamically significant segmental stenosis. However, in the left lower extremity and the distal superficial femoral artery there is a focal area of prominently elevated velocities up to 282 cm/s with the preceding segment velocity measuring only 54 cm/s. This is consistent with a significant stenosis. IMPRESSION: Hemodynamically significant stenosis detected in the distal left superficial femoral jessica ry. Flow is seen to the feet bilaterally. Signer Name: Chico Pérez MD Signed: 08/23/2018 8:53 PM Workstation Name: [id number]
--- NOTE | 2018-08-24 11:17 | Progress Note ---
Assessment and Plan Assessment and plan: 82-year-old history of hypertension, COPD, cirrhosis or emergency room for evaluation of left foot ulcer which he had for 1 month. 2 days ago he banged the left foot on the car, there is a purulent foul-smelling discharge. He status post outpatient antibiotic, cant recall what medication he took. agree with zosyn, hold IVF, patient with lower extremity edema. He has sedentary lifestyle, r/o dvt. Consult ID Left leg wounds, cellulitis, poor hygiene cont abx per ID, cont wound care PAD doppler neg for dvt arterial doppler shows; Hemodynamically significant stenosis detected in the distal left superficial femoral artery. Flow is seen to the feet bilaterally. vasc sx consult . Hypertension -cont bp meds dvt ppx lovenox History Interval history: c/o R leg pain, foul smelling discharge, bilat pedal edema worse on right Review of systems Constitutional: No fevers, no malaise, no joint pains CVS: No chest pain, no orthopnea, GI: No abdominal pain, no diarrhea, no vomiting, no constipation Respiratory: No shortness of breath, no wheezing, no coughing Hospitalist Physical - Physical exam Narrative exam: General.: Appears well, no distress, nontoxic, unkempt HEENT: Moist mucous membranes, extraocular muscles intact, no lymphadenopathy Neck: supple Cardiac: S1-S2 heard Lungs: clear to auscultation bilaterally Abdomen: soft , nontender, nondistended, bowel sounds positive Extremities: BL LE edema worse on Right R leg is swollen, with wound with a foul smelling discharge Skin: no rash or lesions Neurologic: no gross focal deficits Psych: calm, and cooperative - Constitutional Vitals: Temp Pulse Resp BP Pulse Ox 98.7 F 73 20 159/72 99 08/24/18 05:06 08/24/18 05:06 08/24/18 05:06 08/24/18 05:06 08/24/18 05:06 General appearance: Present: no acute distress Results - Labs CBC & Chem 7: 08/23/18 05:27 08/23/18 05:27 Labs: Laboratory Last Values WBC 8.4 K/mm3 (4.5-11.0) 08/23/18 05:27 RBC 4.25 M/mm3 (3.65-5.03) 08/23/18 05:27 Hgb 11.5 gm/dl (11.8-15.2) L 08/23/18 05:27 Hct 35.3 % (35.5-45.6) L 08/23/18 05:27 MCV 83 fl (84-94) L 08/23/18 05:27 MCH 27 pg (28-32) L 08/23/18 05:27 MCHC 33 % (32-34) 08/23/18 05:27 RDW 18.6 % (13.2-15.2) H 08/23/18 05:27 Plt Count 298 K/mm3 (140-440) 08/23/18 05:27 Lymph % (Auto) 13.2 % (13.4-35.0) L 08/23/18 05:27 [place] % (Auto) 10.6 % (0.0-7.3) H 08/23/18 05:27 Eos % (Auto) 0.7 % (0.0-4.3) 08/23/18 05:27 Baso % (Auto) 0.3 % (0.0-1.8) 08/23/18 05:27 Lymph # 1.1 K/mm3 (1.2-5.4) L 08/23/18 05:27 [place] # 0.9 K/mm3 (0.0-0.8) H 08/23/18 05:27 Eos # 0.1 K/mm3 (0.0-0.4) 08/23/18 05:27 Baso # 0.0 K/mm3 (0.0-0.1) 08/23/18 05:27 Seg Neutrophils % 75.2 % (40.0-70.0) H 08/23/18 05:27 Seg Neutrophils # 6.3 K/mm3 (1.8-7.7) 08/23/18 05:27 Sodium 142 mmol/L (137-145) 08/23/18 05:27 Potassium 3.6 mmol/L (3.6-5.0) 08/23/18 05:27 Chloride 106.2 mmol/L (98-107) 08/23/18 05:27 Carbon Dioxide 26 mmol/L (22-30) 08/23/18 05:27 13 mmol/L 08/23/18 05:27 BUN 9 mg/dL (9-20) 08/23/18 05:27 0.8 mg/dL (0.8-1.5) 08/23/18 05:27 Estimated GFR > 60 ml/min 08/23/18 05:27 11 % 08/23/18 05:27 Glucose 95 mg/dL (75-100) 08/23/18 05:27 Lactic Acid 1.40 mmol/L (0.7-2.0) 08/22/18 21:53 Calcium 8.5 mg/dL (8.4-10.2) 08/23/18 05:27 0.20 mg/dL (0.1-1.2) 08/22/18 21:53 AST 10 units/L (5-40) 08/22/18 21:53 ALT < 5 units/L (7-56) L 08/22/18 21:53 72 units/L (35-129) 08/22/18 21:53 6.7 g/dL (6.3-8.2) 08/22/18 21:53 3.4 g/dL (3.9-5) L 08/22/18 21:53 1.0 % 08/22/18 21:53 Active Medications - Current Medications Current Medications: Generic Name Dose Route Start Last Admin Trade Name Freq PRN Reason Stop Dose Admin Acetaminophen 650 mg 08/22/18 23:51 Tylenol PO Q4H PRN Pain MILD(1-3)/Fever >100.5/SHORE Acetaminophen/Hydrocodone Bitart 1 each 08/23/18 06:22 [place] 5/325 PO Q6H PRN Pain (7-10) Amlodipine Besylate 5 mg 08/23/18 10:00 08/23/18 10:51 Norvasc PO 5 mg DAILY [facility] Administration Enoxaparin Sodium 40 mg 08/23/18 10:00 08/23/18 10:53 Lovenox SUB-Q 40 mg QDAY [facility] Administration Furosemide 20 mg 08/23/18 10:00 08/23/18 10:50 Lasix PO 20 mg QDAY [facility] Administration Hydralazine HCl 5 mg 08/23/18 01:13 08/23/18 01:19 Apresoline IV 5 mg Q6HR PRN Administration Blood Pressure Cefepime HCl 1 gm in 100 mls @ 200 mls/hr 08/23/18 14:00 08/23/18 22:05 Maxipime/Ns 1 Gm/100 Ml IV 200 mls/hr Q8HR [facility] Administration Protocol Vancomycin HCl 1,250 mg/ 275 mls @ 166.667 mls/hr 08/24/18 18:00 Sodium Chloride IV Q24HR@1800 [facility] Magnesium Hydroxide 30 ml 08/22/18 23:51 Milk Of Magnesia PO Q4H PRN Constipation Metoprolol Tartrate 50 mg 08/23/18 10:00 08/23/18 10:53 Lopressor PO 50 mg QDAY [facility] Administration Ondansetron HCl 4 mg 08/22/18 23:51 Zofran IV Q8H PRN Nausea And Vomiting Oxycodone/Acetaminophen 1 tab 08/22/18 23:51 Percocet 5/325 PO Q6H PRN Pain, Moderate (4-6) Senna 8.6 mg 08/22/18 23:45 08/23/18 22:05 Senokot PO 8.6 mg Q12HR [facility] Administration Sodium Chloride 10 ml 08/22/18 23:45 08/23/18 22:11 Sodium Chloride Flush Syringe 10 Ml IV 10 ml BID [facility] Administration Sodium Chloride 10 ml 08/22/18 23:51 Sodium Chloride Flush Syringe 10 Ml IV PRN PRN LINE FLUSH
--- NOTE | 2018-08-24 12:15 | Consultation ---
History of Present Illness - Reason for Consult Consult date: 08/24/18 PVD with ulceration - History of Present Illness 82-year-old male with PMHx of HTN, peripheral PVD who presents to the ER with complaints of left foot pain wounds for at least 3 months. Patient states that he developed the wounds about 3 months ago, but for the past several weeks they have been getting worse. Pt states that the wound have been draining a foul smell and drainage, he decided to come to the ER for elevation. Patient states that he has lesions on both foot but the left is worse than the right foot. He denies any injury, denies any fever, denies chills, denies diabetes, patient was seen in the ER within insensitive left foot wound that spread from the left foot to the mid leg, appear necrotic, pt also c/o pain in the left foot, he reports inability to bear any weight in the the affected foot. Pt was seen in he ER and admitted for further evaluation and treatment. Patient had a bilateral lower extremity DVT study which was negative. He also had a bilateral lower extremity arterial study which demonstrated arterial disease, left side worse than right, but both with monophasic flow. Patient has nonpalpable pedal pulses bilaterally and 3+ edema bilaterally. The left lower extremity has cracking of the skin likely secondary to swelling and subsequent decrease swelling with desiccation of much of this skin. There is an open wound on the lateral dorsal surface of the left foot. There are calluses on both feet some of which have cracks in them. There are no open wounds in the right lower extremity at this time. Past History Past Medical History: hypertension, PVD Past Surgical History: No surgical history Social history: no significant social history Family history: no significant family history Medications and Allergies Allergies Allergy/AdvReac Type Severity Reaction Status Date / Time No Known Allergies Allergy Verified 07/03/18 18:19 Home Medications Medication Instructions Recorded Confirmed Last Taken Type Lisinopril/Hydrochlorothiazide 1 tab PO QDAY 02/12/13 08/23/18 02/12/13 History [Zestoretic 20-25 mg] Metoprolol [Lopressor] 50 mg PO QDAY 02/12/13 08/23/18 02/12/13 History Amlodipine Besylate [Norvasc] 5 mg PO DAILY #30 tablet 07/03/18 08/23/18 Unknown Rx Furosemide [Lasix] 20 mg PO QDAY #7 tablet 07/03/18 08/23/18 Unknown Rx HYDROcodone/APAP 5-325 [[place] 1 each PO Q6HR PRN #10 tablet 07/03/18 08/23/18 Unknown Rx 5/325] Active Meds: Active Medications Acetaminophen (Tylenol) 650 mg PO Q4H PRN PRN Reason: Pain MILD(1-3)/Fever >100.5/SHORE Acetaminophen/Hydrocodone Bitart ([place] 5/325) 1 each PO Q6H PRN PRN Reason: Pain (7-10) Enoxaparin Sodium (Lovenox) 40 mg SUB-Q QDAY [facility] Last Admin: 08/23/18 10:53 Dose: 40 mg Documented by: Furosemide (Lasix) 40 mg IV Q12H [facility] Stop: 08/26/18 01:01 Hydralazine HCl (Apresoline) 5 mg IV Q6HR PRN PRN Reason: Blood Pressure Last Admin: 08/23/18 01:19 Dose: 5 mg Documented by: Cefepime HCl (Maxipime/Ns 1 Gm/100 Ml) 1 gm in 100 mls @ 200 mls/hr IV Q8HR [facility]; Protocol Last Admin: 08/23/18 22:05 Dose: 200 mls/hr Documented by: Vancomycin HCl 1,250 mg/ (Sodium Chloride) 275 mls @ 166.667 mls/hr IV Q24HR@1800 [facility] Magnesium Hydroxide (Milk Of Magnesia) 30 ml PO Q4H PRN PRN Reason: Constipation Metoprolol Tartrate (Lopressor) 50 mg PO QDAY [facility] Last Admin: 08/23/18 10:53 Dose: 50 mg Documented by: Ondansetron HCl (Zofran) 4 mg IV Q8H PRN PRN Reason: Nausea And Vomiting Oxycodone/Acetaminophen (Percocet 5/325) 1 tab PO Q6H PRN PRN Reason: Pain, Moderate (4-6) Senna (Senokot) 8.6 mg PO Q12HR [facility] Last Admin: 08/23/18 22:05 Dose: 8.6 mg Documented by: Sodium Chloride (Sodium Chloride Flush Syringe 10 Ml) 10 ml IV BID [facility] Last Admin: 08/23/18 22:11 Dose: 10 ml Documented by: Sodium Chloride (Sodium Chloride Flush Syringe 10 Ml) 10 ml IV PRN PRN PRN Reason: LINE FLUSH Review of Systems All systems: negative (see HPI) Exam - Constitutional Vitals: Temp Pulse Resp BP Pulse Ox 98.7 F 73 20 159/72 99 08/24/18 05:06 08/24/18 05:06 08/24/18 05:06 08/24/18 05:06 08/24/18 05:06 General appearance: Present: no acute distress - EENT Eyes: Present: EOM intact ENT: hearing intact - Respiratory Respiratory effort: normal - Extremities Extremities: normal temperature, normal color, abnormal (see HPI) Peripheral Pulses: abnormal (nonpalpable pedal pulses) - Psychiatric Psychiatric: appropriate mood/affect, cooperative Results - Labs CBC & Chem 7: 08/23/18 05:27 08/23/18 05:27 - Imaging and Cardiology Venous US: report reviewed, image reviewed (and arterial) Assessment and Plan 82-year-old male with nonhealing wound of the left lower extremity for 3 months with 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 Patient will need to wear footwear that does not wear on the dorsum of the foot and will likely need a surgical boot. He will need to be involved with wound care and possibly the general surgeons for debridement. Patient has severe swelling of the lower extremity and is on amlodipine. I discussed this with the hospitalist and we discontinued amlodipine and she will switch him onto a different antihypertensive medication. There is likely also a component of venous insufficiency and swelling of the lower extremities and I ordered a venous insufficiency study tomorrow. Patient has arterial disease of the lower extremities. There is no obvious open wound of the right lower extremity although he does have some calluses. The left lower extremity has an open wound on the dorsum of the foot and worse arterial disease. This was discussed with the patient, and risks, benefits, and alternatives of endovascular revascularization were discussed. He elected to proceed with intervention. Nothing by mouth except meds. Drug Safety Assistant procedure today.
[2018-08-24] MEDS: LOPRESSOR PO SCH (12:17)
[2018-08-24] MEDS: SENOKOT PO SCH ×2 (12:17→21:34)
[2018-08-24] MEDS: LOVENOX SUB-Q SCH (12:20)
[2018-08-24] MEDS: SODIUM CHLORIDE FLUSH SYRINGE 10 ML IV SCH ×2 (12:21→21:34)
[2018-08-24] MEDS ORDERED: HEPARIN/NS 5000 UNIT/500ML(CATH LAB) 1,000 ML IR ONE (12:48)
[2018-08-24] MEDS ORDERED: XYLOCAINE 2% INFILTRATI ONE (12:48)
[2018-08-24] MEDS ORDERED: HEPARIN 10,000 UNITS/10 ML ONE (12:48)
[2018-08-24] MEDS ORDERED: ANCEF/STERILE WATER 2 GM/20 ML 2 GM/20 ML SYRINGE IV ONE (12:49)
[2018-08-24] MEDS ORDERED: NACL 0.9% 500 ML 500 ML ONE (13:04)
[2018-08-24] MEDS: SUBLIMAZE ONE ×3 (13:22→14:05)
[2018-08-24] MEDS: VERSED ONE ×3 (13:22→14:05)
--- NOTE | 2018-08-24 13:40 | Progress Note ---
Assessment and Plan Cultures: wound culture 08/23/2018 Staph and GNRs A/P: 82-year-old male with hypertension, peripheral vascular disease, cigar smoker admitted with: 1) Left foot cellulitis, superficial infected wounds and PVD: likely polymicrobial infection ? abscess. he reports collection busted at home and has been draining purulence. Poor hygiene. No fever or leukocytosis. Arterial duplex with significant left sided stenosis. 2) Peripheral vascular disease in gaudencio legs. Recs: Needs wound care consult check CRP Check left foot XR Continue cefepime and vancomycin Contact isolation until MRSA is r/o Patient to have endovascular revascularization Will follow Charu Plascencia MD Infectious Diseases [employer] [facility] ([facility]) M [phone] O [phone] Subjective Date of service: 08/24/18 Principal diagnosis: left foot cellulitis Interval history: Patient reports feeling better, no fever. Objective - Exam Narrative Exam: Constitutional: Alert, cooperative. No acute distress Head, Ears, Nose: Normocephalic, atraumatic. External ears, nose normal Eyes: Conjunctivae/corneas clear. No icterus. No ptosis. Neck: Supple, no meningeal signs Oral: edentulous, no thrush Cardiovascular: S1, S2 normal. Respiratory: Good air entry, clear to auscultation bilaterally GI: Soft, non-tender; bowel sounds normal. No peritoneal signs Musculoskeletal: Left foot with dry, scaly and hyperkeratotic skin, superficial wounds with slight warmth and tenderness. Bilateral hyperkeratotic toenails. +left foot blister Skin: No rash or abscess Hem/Lymphatic: No palpable cervical or supraclavicular nodes. No lymphangitis Psych: Mood ok. Affect normal Neurological: Awake, alert, oriented. No gross abnormality - Constitutional Vitals: Vital Signs Temp Pulse Resp BP Pulse Ox 98.2 F 81 18 131/69 99 08/24/18 12:08 08/24/18 12:10 08/24/18 12:08 08/24/18 12:17 08/24/18 12:10 Temperature -Last 24 Hours Temperature 98.2 F Temperature 98.7 F Temperature 98.4 F Temperature 98.4 F - Labs CBC & Chem 7: 08/23/18 05:27 08/23/18 05:27
[2018-08-24] MEDS: APRESOLINE ONE ×2 (13:52→14:05)
[2018-08-24] MEDS ORDERED: SUBLIMAZE ONE (14:07)
[2018-08-24] MEDS ORDERED: VERSED ONE (14:07)
[2018-08-24] MEDS ORDERED: LOPRESSOR IV ONE ×3 (14:19→14:38)
[2018-08-24] MEDS ORDERED: BENADRYL ONE (14:19)
[2018-08-24] MEDS ORDERED: HEPARIN/NS 5000 UNIT/500ML(CATH LAB) 500 ML IR ONE (14:32)
[2018-08-24] MEDS ORDERED: BABY ASPIRIN ONE (14:56)
[2018-08-24] MEDS ORDERED: PLAVIX ONE (14:56)
[2018-08-24] MEDS ORDERED: ALUM-MAG HYDROX-SIMETH 200-200-20MG/5ML ONE (15:00)
[2018-08-24] MEDS ORDERED: PLAVIX PO ONE (15:11)
[2018-08-24] MEDS ORDERED: HALFPRIN EC PO ONE (15:11)
--- NOTE | 2018-08-24 15:29 | Operative Report ---
Operative Report Operative Report: EXAM: 1. Ultrasound-guided access of the right common femoral artery. 2. Angiography of the right lower extremity. 3. Selection of the abdominal aorta with angiography. 4. Selection of the left common femoral artery, superficial femoral artery, popliteal artery, and tibioperoneal trunk with angiography of the left lower extremity 5. Atherectomy and angioplasty of the left superficial femoral artery at the proximal and midportion with Hawkone LX device and 6 x 150 mm iNPACT DCB x 2 6. Closure of the right common femoral artery with 6 Scottish Pro-glide DATE: 08/24/18 TECHNICAL PROPOSAL WRITER: MIGUEL MAO MD INDICATION: Critical limb ischemia of the left lower extremity with nonhealing ulceration of the dorsum of the foot MEDICATIONS: Please see nursing report for full details. DEVICES: 6 mm spider EPD 6 mm x 150 mm iNPACT DCB x 2 Hawkone LX device CONTRAST: Please see cath lab tech report for full details. PROCEDURE: The risks, benefits, and alternatives were discussed with the patient; written informed consent was obtained. Groins were prepped and draped in a sterile fashion. The right common femoral artery was evaluated with ultrasound was patent. Under direct ultrasound guidance, right common femoral artery was accessed with a 21-gauge micropuncture needle and a 0.018 inch wire was passed into the aorta. Needle was exchanged for transitional dilator. A wire was exchanged for 0.025 inch wire. Traditional dilators exchanged for a 5 Scottish sheath. Digital subtraction angiography was performed demonstrating patency of the right common femoral artery, 50% narrowing of the right proximal superficial femoral artery, and patency of the visualized proximal superficial femoral artery. The puncture was appropriate, above the bifurcation and below the inferior epigastric artery. Flush catheter was advanced over the wire and used to select the abdominal aorta. The abdominal aorta was selected and digital subtraction angiography was performed demonstrating a patent abdominal aorta. The common iliac artery on the right side had a 20% narrowing and the common iliac artery on the left side was patent. The left external iliac artery had a proximal 20-30% narrowing. The right external iliac artery had a proximal 40-50% narrowing. The left common femoral artery, left popliteal artery, and left tibioperoneal trunk was selected and digital subtraction angiography was performed. Digital subtraction angiography demonstrated a proximal 30-40% narrowing in the left common femoral artery. The left proximal superficial femoral artery had 30% diffuse narrowing with a superimposed focal dissection or ulcerative plaque with 60% narrowing. The left fundus femoral artery had diffuse 30% arterial disease. 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 The distal superficial femoral artery has irregular plaques with 30% narrowing. The popliteal artery above the knee is patent. The below the knee popliteal artery has diffuse 30% narrowing. The anterior tibial artery is occluded after the first centimeter. The tibioperoneal trunk is a 99% focal narrowing within it. The peroneal artery is diseased with 30% narrowing proximally and 50-90% narrowing distally. The posterior tibial artery is the dominant flow to the foot with the proximal 10 cm having 50-80% narrowing in the rest the vessel being patent. After reviewing the images, I determine the patient required intervention to attempt to salvage his foot. The patient was heparinized. Sheath was exchanged for a 7 Scottish 45 cm [place] destination positioned in the left common femoral artery. The popliteal artery was selected and a 6 mm spider embolic protection device was deployed. Atherectomy was performed of the proximal and mid superficial femoral artery until there was 30% or less than 30% residual narrowing angioplasty was in performed with a 6 mm 150 mm drug-coated balloon of the left proximal and mid superficial femoral artery. There is no residual narrowing of the left proximal superficial femoral artery and less than 15% residual narrowing of the mid superficial femoral artery. Debris was noted in the embolic protection device which was then retrieved. There was no change in runoff and no distal embolization after retrieval. I considered further treatment, but the patient was becoming restless and was moving requiring restraint placement and due to his movements, his groin was oozing around the sheath. The sheath was then retracted to the right external iliac artery and over a 0.035 inch [place] wire was closed with a 6 Scottish Pro-glide. Immediate hemostasis was achieved. No immediate postprocedural complication. Pressure dressing applied. Sterile dressing applied. Patient was then transferred to the floor. Plavix and aspirin were loaded. FINDINGS: Please see procedure note above. IMPRESSION: 1. Successful atherectomy and angioplasty of the left superficial femoral artery. 2. Successful third order selection of the left tibioperoneal trunk performed during the diagnostic portion of the examination.
[2018-08-24] MEDS ORDERED: VANCOMYCIN 1,500 MG in NACL 0.9% 500 ML 500 ML IV ONE (16:00)
[2018-08-24] MEDS: LASIX IV SCH (16:05)
[2018-08-24] MEDS: MAXIPIME/NS 1 GM/100 ML 1 GM/100 ML BAG IV SCH (16:08)
--- NOTE | 2018-08-24 16:19 | Event Note ---
Date: 08/24/18 Patient underwent successful superficial femoral artery revascularization. Further tibioperoneal trunk and posterior tibial revascularization will need to be performed as an outpatient with anesthesia due to patient not being able to continue further with the procedure today with conscious sedation due to restlessness. Card provided.
[2018-08-24] MEDS: NORCO 5/325 PO PRN (16:20)
[2018-08-24] MEDS: VANCOMYCIN 1,250 MG in NACL 0.9% 250ML 250 ML IV SCH (20:04)
[2018-08-24] MEDS: APRESOLINE IV PRN (20:13)
[2018-08-24] MEDS: NORVASC PO SCH (20:27)
[2018-08-24] MEDS: LASIX PO SCH (20:27)
[2018-08-25] MEDS: LASIX IV SCH ×2 (00:57→13:50)
[2018-08-25] MEDS: MAXIPIME/NS 1 GM/100 ML 1 GM/100 ML BAG IV SCH ×4 (00:57→17:52)
--- NOTE | 2018-08-25 08:17 | XRay Report ---
LEFT FOOT, 3 VIEWS INDICATION: eval for air/osteomyelitis. COMPARISON: None. IMPRESSION: A bandage overlies the left foot which degrades bony detail. There is mild diffuse soft tissue swelling but no evidence for subcutaneous emphysema. There is mild osteopenia. No significant periostitis or bony destruction is appreciated on x-ray to suggest osteomyelitis. Mild diffuse osteo arthritic changes are noted which are most pronounced at the first metatarsophalangeal joint. If furt her evaluation for osteomyelitis is needed, MRI with contrast would provide the most information. Signer Name: Hardy Godwin Jr, MD Signed: 08/25/2018 8:12 AM Workstation Name: [id number]
[2018-08-25] MEDS: LOVENOX SUB-Q SCH (09:15)
[2018-08-25] MEDS: SENOKOT PO SCH ×2 (09:16→21:04)
[2018-08-25] MEDS: LOPRESSOR PO SCH (09:16)
[2018-08-25] MEDS: PLAVIX PO SCH (09:16)
[2018-08-25] MEDS: NORCO 5/325 PO PRN (09:16)
[2018-08-25] MEDS: HALFPRIN EC PO SCH (09:17)
[2018-08-25] MEDS: SODIUM CHLORIDE FLUSH SYRINGE 10 ML IV SCH ×2 (09:17→21:32)
--- NOTE | 2018-08-25 10:55 | Progress Note ---
Assessment and Plan Cultures: wound culture 08/23/2018 Staph and GNRs A/P: 82-year-old male with hypertension, peripheral vascular disease, cigar smoker admitted with: 1) Left foot cellulitis, superficial infected wounds and PVD: likely polymicrobial infection ? abscess. he reports collection busted at home and has been draining purulence. Poor hygiene. No fever or leukocytosis. Arterial duplex with significant left sided stenosis. CRP 1.8. XR no sign of gas or osteomyelitis. 2) Peripheral vascular disease in gaudencio legs: s/p underwent successful superficial femoral artery revascularization. Further tibioperoneal trunk and posterior tibial revascularization will need to be performed as an outpatient due to restlessness. Recs: f/u wound cultures Needs wound care consult Continue cefepime and vancomycin for now Contact isolation until MRSA is r/o Vascular f/u as an outpatient Will follow Charu Plascencia MD Infectious Diseases [employer] [facility] ([facility]) M [phone] O [phone] Subjective Date of service: 08/25/18 Principal diagnosis: left foot cellulitis Interval history: Patient reports feeling ok, no fever. Objective - Exam Narrative Exam: Constitutional: Alert, cooperative. No acute distress Head, Ears, Nose: Normocephalic, atraumatic. External ears, nose normal Eyes: Conjunctivae/corneas clear. No icterus. No ptosis. Neck: Supple, no meningeal signs Oral: edentulous, no thrush Cardiovascular: S1, S2 normal. Respiratory: Good air entry, clear to auscultation bilaterally GI: Soft, non-tender; bowel sounds normal. No peritoneal signs Musculoskeletal: Left foot with dry, scaly and hyperkeratotic skin, superficial wounds with slight warmth and tenderness. Bilateral hyperkeratotic toenails. +left foot blister Skin: No rash or abscess Hem/Lymphatic: No palpable cervical or supraclavicular nodes. No lymphangitis Psych: Mood ok. Affect normal Neurological: Awake, alert, oriented. No gross abnormality - Constitutional Vitals: Vital Signs Temp Pulse Resp BP Pulse Ox 98.9 F 84 20 156/79 98 08/25/18 05:06 08/25/18 05:06 08/25/18 05:06 08/25/18 05:06 08/25/18 05:06 Temperature -Last 24 Hours Temperature 98.9 F Temperature 99.1 F Temperature 98.0 F Temperature 98.2 F - Labs CBC & Chem 7: 08/23/18 05:27 08/23/18 05:27 Labs: Abnormal lab results 08/24/18 Range/Units 16:46 C-Reactive Protein 1.80 H (0.00-1.30) mg/dL
--- NOTE | 2018-08-25 16:15 | Progress Note ---
Assessment and Plan Assessment and plan: Patient is a 82-year-old man with a history of hypertension, COPD and Cirrhosis who presented to [facility] ED with non healing left foot ulcer for 1 month. The left foot got worse 2 days ago prior to hospitalization after he banged the left foot on the car. The foot developed purulent foul-smelling discharge. He status post outpatient antibiotic, cant recall what medication he took. * Venous leg doppler neg for bilateral leg dvt * Arterial leg doppler showed Hemodynamically significant stenosis detected in the distal left superficial femoral artery. Flow is seen to the feet bilaterally. PAD with non healing ulcer s/p successful superficial femoral artery revascularization on 08/24/18. Further tibioperoneal trunk and posterior tibial revascularization will need to be performed as an outpatient with anesthesia due to patient not being able to continue further with the procedure today with conscious sedation due to restlessness. Vascular/IR following, input noted, Wound care needed Severe malnutrition suspected, bmi 18, poa: consult Coat Padder Anemia, appears chronic: monitor cbc closely Hypertension-cont bp meds COPD; continue to monitor and nebs as needed Cirrhosis by history: monitor closely History Interval history: Patient was seen and examined. Follow-up on current diagnosis left foot ulcer wi th PAD. No overnight events reported to me. Patient denies any chest pain, shortness breath, nausea/vomiting or severe headaches. Imaging, nursing note, chart, labs and old chart reviewed. Discussed with patient. Hospitalist Physical - Physical exam Narrative exam: General: thin cachetic, Appears well, no distress, nontoxic, unkempt HEENT: Moist mucous membranes, extraocular muscles intact, no lymphadenopathy Neck: supple Cardiac: S1-S2 heard Lungs: clear to auscultation bilaterally Abdomen: soft , nontender, nondistended, bowel sounds positive Extremities: BL LE edema worse on Right R leg is swollen, with wound with a foul smelling discharge Skin: no rash or lesions Neurologic: no gross focal deficits Psych: calm, and cooperative - Constitutional Vitals: Temp Pulse Resp BP Pulse Ox 99.4 F 71 20 124/64 98 08/25/18 11:54 08/25/18 11:54 08/25/18 11:54 08/25/18 11:54 08/25/18 11:54 General appearance: Present: no acute distress Results - Labs CBC & Chem 7: 08/23/18 05:27 08/23/18 05:27 Labs: Laboratory Last Values WBC 8.4 K/mm3 (4.5-11.0) 08/23/18 05:27 RBC 4.25 M/mm3 (3.65-5.03) 08/23/18 05:27 Hgb 11.5 gm/dl (11.8-15.2) L 08/23/18 05:27 Hct 35.3 % (35.5-45.6) L 08/23/18 05:27 MCV 83 fl (84-94) L 08/23/18 05:27 MCH 27 pg (28-32) L 08/23/18 05:27 MCHC 33 % (32-34) 08/23/18 05:27 RDW 18.6 % (13.2-15.2) H 08/23/18 05:27 Plt Count 298 K/mm3 (140-440) 08/23/18 05:27 Lymph % (Auto) 13.2 % (13.4-35.0) L 08/23/18 05:27 [place] % (Auto) 10.6 % (0.0-7.3) H 08/23/18 05:27 Eos % (Auto) 0.7 % (0.0-4.3) 08/23/18 05:27 Baso % (Auto) 0.3 % (0.0-1.8) 08/23/18 05:27 Lymph # 1.1 K/mm3 (1.2-5.4) L 08/23/18 05:27 [place] # 0.9 K/mm3 (0.0-0.8) H 08/23/18 05:27 Eos # 0.1 K/mm3 (0.0-0.4) 08/23/18 05:27 Baso # 0.0 K/mm3 (0.0-0.1) 08/23/18 05:27 Seg Neutrophils % 75.2 % (40.0-70.0) H 08/23/18 05:27 Seg Neutrophils # 6.3 K/mm3 (1.8-7.7) 08/23/18 05:27 Sodium 142 mmol/L (137-145) 08/23/18 05:27 Potassium 3.6 mmol/L (3.6-5.0) 08/23/18 05:27 Chloride 106.2 mmol/L (98-107) 08/23/18 05:27 Carbon Dioxide 26 mmol/L (22-30) 08/23/18 05:27 13 mmol/L 08/23/18 05:27 BUN 9 mg/dL (9-20) 08/23/18 05:27 0.8 mg/dL (0.8-1.5) 08/23/18 05:27 Estimated GFR > 60 ml/min 08/23/18 05:27 11 % 08/23/18 05:27 Glucose 95 mg/dL (75-100) 08/23/18 05:27 Lactic Acid 1.40 mmol/L (0.7-2.0) 08/22/18 21:53 Calcium 8.5 mg/dL (8.4-10.2) 08/23/18 05:27 0.20 mg/dL (0.1-1.2) 08/22/18 21:53 AST 10 units/L (5-40) 08/22/18 21:53 ALT < 5 units/L (7-56) L 08/22/18 21:53 72 units/L (35-129) 08/22/18 21:53 1.80 mg/dL (0.00-1.30) H 08/24/18 16:46 6.7 g/dL (6.3-8.2) 08/22/18 21:53 3.4 g/dL (3.9-5) L 08/22/18 21:53 1.0 % 08/22/18 21:53 Active Medications - Current Medications Current Medications: Generic Name Dose Route Start Last Admin Trade Name Freq PRN Reason Stop Dose Admin Acetaminophen 650 mg 08/22/18 23:51 Tylenol PO Q4H PRN Pain MILD(1-3)/Fever >100.5/SHORE Acetaminophen/Hydrocodone Bitart 1 each 08/23/18 06:22 08/25/18 09:16 [place] 5/325 PO 1 each Q6H PRN Administration Pain (7-10) Aspirin 81 mg 08/25/18 10:00 08/25/18 09:17 Halfprin Ec PO 81 mg QDAY CHELE Administration Clopidogrel Bisulfate 75 mg 08/25/18 10:00 08/25/18 09:16 Plavix PO 75 mg QDAY CHELE Administration Enoxaparin Sodium 40 mg 08/23/18 10:00 08/25/18 09:15 Lovenox SUB-Q 40 mg QDAY CHELE Administration Furosemide 40 mg 08/24/18 13:00 08/25/18 13:50 Lasix IV 08/26/18 01:01 40 mg Q12H CHELE Administration Hydralazine HCl 5 mg 08/23/18 01:13 08/24/18 20:13 Apresoline IV 5 mg Q6HR PRN Administration Blood Pressure Vancomycin HCl 1,250 mg/ 275 mls @ 166.667 mls/hr 08/24/18 18:00 08/24/18 20:04 Sodium Chloride IV 166.667 mls/hr Q24HR@1800 CHELE Administration Cefepime HCl 1 gm in 100 mls @ 200 mls/hr 08/25/18 00:00 08/25/18 09:16 Maxipime/Ns 1 Gm/100 Ml IV 200 mls/hr Q8H CHELE Administration Protocol Magnesium Hydroxide 30 ml 08/22/18 23:51 Milk Of Magnesia PO Q4H PRN Constipation Metoprolol Tartrate 50 mg 08/23/18 10:00 08/25/18 09:16 Lopressor PO 50 mg QDAY CHELE Administration Ondansetron HCl 4 mg 08/22/18 23:51 Zofran IV Q8H PRN Nausea And Vomiting Oxycodone/Acetaminophen 1 tab 08/22/18 23:51 Percocet 5/325 PO Q6H PRN Pain, Moderate (4-6) Senna 8.6 mg 08/22/18 23:45 08/25/18 09:16 Senokot PO 8.6 mg Q12HR CHELE Administration Sodium Chloride 10 ml 08/22/18 23:45 08/25/18 09:17 Sodium Chloride Flush Syringe 10 Ml IV 10 ml BID CHELE Administration Sodium Chloride 10 ml 08/22/18 23:51 Sodium Chloride Flush Syringe 10 Ml IV PRN PRN LINE FLUSH Nutrition/Malnutrition Assess - Dietary Evaluation Nutrition/Malnutrition Findings: Nutrition Notes Start: 08/24/18 15:24 Freq: Status: Active Protocol: Document 08/24/18 15:24 RM (Rec: 08/24/18 15:37 RM [id number]) Nutrition Notes Need for Assessment generated from: MST Initial or Follow up Assessment Current Diagnosis Hypertension Other Pertinent Diagnosis L posterior foot PU, L foot stasis ulcer, peripheral PVD Current Diet Cardiac Labs/Tests Reviewed Pertinent Medications Reviewed Height 5 ft 7 in Weight 55.8 kg Usual Body Weight 75 kg [place] Body Weight (kg) 67.27 BMI 19.3 Weight change and time frame 25.6% wt loss X 3 years Subjective/Other Information Screened for malnutrition. 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 Stated that his appetite is good and that he eats most of his meals. Stated UBW was 165 lbs 3 years ago. Noted temporal wasting. 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 No Is Patient Ambulatory and/or Out of Bed No REE-([place] Jeor-confined to bed) [phone] Calculation Used for Recommendations [place] or Additional Notes Protein Needs: 67-84g (1.2-1. 5g/kg) Fluid Needs: 1 ml/kcal Nutrition Intervention Change Diet Order: Continue current Add Supplement/Snack (indicate name/kcal [place]ar BID /protein ) Provides kCal: 190 Provides Protein (gm) 5 Goal #1 Continue to meet at least 75% of calorie and protein needs via PO and ONS intakes Goal #2 Wound healing Anticipated Discharge Needs: Cardiac diet Follow-Up By: 08/26/18 Additional Comments Follow for PO intakes, Cezar intakes
--- NOTE | 2018-08-25 16:18 | Vascular Lab Report ---
DUPLEX DOPPLER LOWER EXTREMITY VEINS, BILATERAL INDICATION: venous insuffiency study of the LE, swelling, woun. TECHNIQUE: Duplex doppler imaging was performed through the veins of both lower extremities using venous [place] and other maneuvers. COMPARISON: No relevant prior imaging study available. FINDINGS: Right Common femoral vein: Negative. Right Superficial femoral vein: Negative. Right Popliteal vein: Negative. Right Calf veins: Negative. Left Common femoral vein: Negative. Left Superficial femoral vein: Negative. Left Popliteal vein: Negative. Left Calf veins: Negative. Additional findings: The technologist was unable to rule out superficial or deep venous reflux in the right common femoral vein and right superficial femoral vein due to the surgical site and the patien t's pain tolerance to probe pressure. There is no evidence for superficial or deep venous reflux in t he bilateral lower extremities otherwise.. IMPRESSION: No sonographic evidence for DVT in either lower extremity. Signer Name: Hardy Godwin Jr, MD Signed: 08/25/2018 4:14 PM Workstation Name: [id number]
[2018-08-25] MEDS: VANCOMYCIN 1,250 MG in NACL 0.9% 250ML 250 ML IV SCH (17:53)
[2018-08-26] MEDS: LASIX IV SCH (01:46)
[2018-08-26 05:29] LABS: Hematocrit 31.1 % (35.5-45.6); Hemoglobin 10.3 gm/dl (11.8-15.2); Mean Corpuscular HGB Conc 33 % (32-34); Mean Corpuscular Volume 82 fl (84-94); Platelet Count 251 K/mm3 (140-440); Red Cell Distribution Width 18.4 % (13.2-15.2)
[2018-08-26 05:52] LABS: Alanine Aminotransferase 6 units/L (7-56); Albumin 3.2 g/dL (3.9-5); BUN/Creatinine Ratio 18; Blood Urea Nitrogen 14 mg/dL (9-20); Calcium 8.2 mg/dL (8.4-10.2); Hemolysis Index 5
[2018-08-26] MEDS: MAXIPIME/NS 1 GM/100 ML 1 GM/100 ML BAG IV SCH ×3 (09:57→15:32)
[2018-08-26] MEDS: SENOKOT PO SCH ×2 (10:02→21:36)
[2018-08-26] MEDS: LOPRESSOR PO SCH (10:03)
[2018-08-26] MEDS: LOVENOX SUB-Q SCH (10:03)
[2018-08-26] MEDS: SODIUM CHLORIDE FLUSH SYRINGE 10 ML IV SCH ×2 (10:03→21:53)
[2018-08-26] MEDS: HALFPRIN EC PO SCH (10:03)
[2018-08-26] MEDS: PLAVIX PO SCH (10:03)
[2018-08-26] MEDS ORDERED: POTASSIUM CHLORIDE PO NR (15:30)
--- NOTE | 2018-08-26 15:34 | Progress Note ---
Assessment and Plan Assessment and plan: Patient is a 82-year-old man with a history of hypertension, COPD and Cirrhosis who presented to [facility] ED with non healing left foot ulcer for 1 month. The left foot got worse 2 days ago prior to hospitalization after he banged the left foot on the car. The foot developed purulent foul-smelling discharge. He status post outpatient antibiotic, cant recall what medication he took. * Venous leg doppler neg for bilateral leg dvt * Arterial leg doppler showed Hemodynamically significant stenosis detected in the distal left superficial femoral artery. Flow is seen to the feet bilaterally. PAD with non healing ulcer s/p successful superficial femoral artery revascularization on 08/24/18. Further tibioperoneal trunk and posterior tibial revascularization will need to be performed as an outpatient with anesthesia due to patient not being able to continue further with the procedure today with conscious sedation due to restlessness. Vascular/IR following, input noted, Wound care needed Severe malnutrition suspected, bmi 18, poa: consult Heddler Tier Anemia, appears chronic: monitor cbc closely Hypertension-cont bp meds COPD; continue to monitor and nebs as needed Cirrhosis by history: monitor closely MRSA and Proteus Perreni growing out wound culture Await ID final recommendation History Interval history: Patient was seen and examined. Follow-up on current diagnosis left foot ulcer with PAD. No overnight events reported to me. Patient denies any chest pain, shortness breath, nausea/vomiting or severe headaches. Imaging, nursing note, chart, labs and old chart reviewed. Discussed with patient. Hospitalist Physical - Physical exam Narrative exam: General: thin cachetic, Appears well, no distress, nontoxic, unkempt HEENT: Moist mucous membranes, extraocular muscles intact, no lymphadenopathy Neck: supple Cardiac: S1-S2 heard Lungs: clear to auscultation bilaterally Abdomen: soft , nontender, nondistended, bowel sounds positive Extremities: BL LE edema worse on Right R leg is swollen, with wound with a foul smelling discharge Skin: no rash or lesions Neurologic: no gross focal deficits Psych: calm, and cooperative - Constitutional Vitals: Temp Pulse Resp BP Pulse Ox 98.7 F 82 18 146/75 100 08/26/18 05:21 08/26/18 05:21 08/26/18 05:21 08/26/18 05:21 08/26/18 05:21 General appearance: Present: no acute distress Results - Labs CBC & Chem 7: 08/26/18 05:07 08/26/18 05:07 Labs: Laboratory Last Values WBC 6.7 K/mm3 (4.5-11.0) 08/26/18 05:07 RBC 3.80 M/mm3 (3.65-5.03) 08/26/18 05:07 Hgb 10.3 gm/dl (11.8-15.2) L 08/26/18 05:07 Hct 31.1 % (35.5-45.6) L 08/26/18 05:07 MCV 82 fl (84-94) L 08/26/18 05:07 MCH 27 pg (28-32) L 08/26/18 05:07 MCHC 33 % (32-34) 08/26/18 05:07 RDW 18.4 % (13.2-15.2) H 08/26/18 05:07 Plt Count 251 K/mm3 (140-440) 08/26/18 05:07 Lymph % (Auto) 13.2 % (13.4-35.0) L 08/23/18 05:27 [place] % (Auto) 10.6 % (0.0-7.3) H 08/23/18 05:27 Eos % (Auto) 0.7 % (0.0-4.3) 08/23/18 05:27 Baso % (Auto) 0.3 % (0.0-1.8) 08/23/18 05:27 Lymph # 1.1 K/mm3 (1.2-5.4) L 08/23/18 05:27 [place] # 0.9 K/mm3 (0.0-0.8) H 08/23/18 05:27 Eos # 0.1 K/mm3 (0.0-0.4) 08/23/18 05:27 Baso # 0.0 K/mm3 (0.0-0.1) 08/23/18 05:27 Seg Neutrophils % 75.2 % (40.0-70.0) H 08/23/18 05:27 Seg Neutrophils # 6.3 K/mm3 (1.8-7.7) 08/23/18 05:27 Sodium 139 mmol/L (137-145) 08/26/18 05:07 Potassium 3.4 mmol/L (3.6-5.0) L 08/26/18 05:07 Chloride 102.1 mmol/L (98-107) 08/26/18 05:07 Carbon Dioxide 27 mmol/L (22-30) 08/26/18 05:07 13 mmol/L 08/26/18 05:07 BUN 14 mg/dL (9-20) 08/26/18 05:07 0.8 mg/dL (0.8-1.5) 08/26/18 05:07 Estimated GFR > 60 ml/min 08/26/18 05:07 18 % 08/26/18 05:07 Glucose 95 mg/dL (75-100) 08/26/18 05:07 Lactic Acid 1.40 mmol/L (0.7-2.0) 08/22/18 21:53 Calcium 8.2 mg/dL (8.4-10.2) L 08/26/18 05:07 0.40 mg/dL (0.1-1.2) 08/26/18 05:07 AST 15 units/L (5-40) 08/26/18 05:07 ALT 6 units/L (7-56) L 08/26/18 05:07 66 units/L (35-129) 08/26/18 05:07 1.80 mg/dL (0.00-1.30) H 08/24/18 16:46 6.6 g/dL (6.3-8.2) 08/26/18 05:07 3.2 g/dL (3.9-5) L 08/26/18 05:07 0.9 % 08/26/18 05:07 Active Medications - Current Medications Current Medications: Generic Name Dose Route Start Last Admin Trade Name Freq PRN Reason Stop Dose Admin Acetaminophen 650 mg 08/22/18 23:51 Tylenol PO Q4H PRN Pain MILD(1-3)/Fever >100.5/SHORE Acetaminophen/Hydrocodone Bitart 1 each 08/23/18 06:22 08/25/18 09:16 [place] 5/325 PO 1 each Q6H PRN Administration Pain (7-10) Aspirin 81 mg 08/25/18 10:00 08/26/18 10:03 Halfprin Ec PO 81 mg QDAY CHELE Administration Clopidogrel Bisulfate 75 mg 08/25/18 10:00 08/26/18 10:03 Plavix PO 75 mg QDAY CHELE Administration Enoxaparin Sodium 40 mg 08/23/18 10:00 08/26/18 10:03 Lovenox SUB-Q 40 mg QDAY CHELE Administration Hydralazine HCl 5 mg 08/23/18 01:13 08/24/18 20:13 Apresoline IV 5 mg Q6HR PRN Administration Blood Pressure Vancomycin HCl 1,250 mg/ 275 mls @ 166.667 mls/hr 08/24/18 18:00 08/25/18 17:53 Sodium Chloride IV 166.667 mls/hr Q24HR@1800 CHELE Administration Cefepime HCl 1 gm in 100 mls @ 200 mls/hr 08/25/18 00:00 08/26/18 09:57 Maxipime/Ns 1 Gm/100 Ml IV 200 mls/hr Q8H CHELE Administration Protocol Magnesium Hydroxide 30 ml 08/22/18 23:51 Milk Of Magnesia PO Q4H PRN Constipation Metoprolol Tartrate 50 mg 08/23/18 10:00 08/26/18 10:03 Lopressor PO 50 mg QDAY CHELE Administration Ondansetron HCl 4 mg 08/22/18 23:51 Zofran IV Q8H PRN Nausea And Vomiting Oxycodone/Acetaminophen 1 tab 08/22/18 23:51 Percocet 5/325 PO Q6H PRN Pain, Moderate (4-6) Potassium Chloride 40 meq 08/26/18 15:30 Potassium Chloride PO 08/26/18 15:31 ONCE ONE Senna 8.6 mg 08/22/18 23:45 08/26/18 10:02 Senokot PO 8.6 mg Q12HR CHELE Administration Sodium Chloride 10 ml 08/22/18 23:45 08/26/18 10:03 Sodium Chloride Flush Syringe 10 Ml IV 10 ml BID CHELE Administration Sodium Chloride 10 ml 08/22/18 23:51 Sodium Chloride Flush Syringe 10 Ml IV PRN PRN LINE FLUSH Nutrition/Malnutrition Assess - Dietary Evaluation Nutrition/Malnutrition Findings: Nutrition Notes Start: 08/24/18 15:24 Freq: Status: Active Protocol: Document 08/24/18 15:24 RM (Rec: 08/24/18 15:37 RM [id number]) Nutrition Notes Need for Assessment generated from: MST Initial or Follow up Assessment Current Diagnosis Hypertension Other Pertinent Diagnosis L posterior foot PU, L foot stasis ulcer, peripheral PVD Current Diet Cardiac Labs/Tests Reviewed Pertinent Medications Reviewed Height 5 ft 7 in Weight 55.8 kg Usual Body Weight 75 kg [place] Body Weight (kg) 67.27 BMI 19.3 Weight change and time frame 25.6% wt loss X 3 years Subjective/Other Information Screened for malnutrition. Pt stated that [employer] he ate 2 meals daily. Stated that his appetite is good and that he eats most of his meals. Stated UBW was 165 lbs 3 years ago. Noted temporal wasting. Percent of energy/protein needs met: 100%/93% Burn Absent Trauma Absent #2 Nutrition Diagnosis Increased nutrient needs ( specify in comment below) Comments: glutamine, arginine Etiology wound healing As Evidenced by Signs and Symptoms L foot PU, L foot stasis ulcer #1 Nutrition Diagnosis Malnutrition Etiology decreased appetite As Evidenced by Signs and Symptoms temporal wasting, pt statement that [employer] he ate 2 meals daily Is patient on ventilator? No Is Patient Ambulatory and/or Out of Bed No REE-([place]-St. Jeor-confined to bed) [phone] Calculation Used for Recommendations [facility] Additional Notes Protein Needs: 67-84g (1.2-1. 5g/kg) Fluid Needs: 1 ml/kcal Nutrition Intervention Change Diet Order: Continue current Add Supplement/Snack (indicate name/kcal Cezar BID /protein ) Provides kCal: 190 Provides Protein (gm) 5 Goal #1 Continue to meet at least 75% of calorie and protein needs via PO and ONS intakes Goal #2 Wound healing Anticipated Discharge Needs: Cardiac diet Follow-Up By: 08/26/18 Additional Comments Follow for PO intakes, Cezar intakes
[2018-08-26] MEDS: VANCOMYCIN 1,250 MG in NACL 0.9% 250ML 250 ML IV SCH (18:26)
[2018-08-27] MEDS: MAXIPIME/NS 1 GM/100 ML 1 GM/100 ML BAG IV SCH ×2 (00:32→08:40)
--- NOTE | 2018-08-27 10:05 | Progress Note ---
Assessment and Plan Cultures: wound culture 08/23/2018 MRSA and Carbapenem-resistant Proteus A/P: 82-year-old male with hypertension, peripheral vascular disease, cigar smoker admitted with: 1) Left foot cellulitis, superficial infected wounds and PVD: likely polymicrobial infection ? abscess. He reports collection busted at home and has been draining purulence. Poor hygiene. No fever or leukocytosis. Arterial duplex with significant left sided stenosis. CRP 1.8. XR no sign of gas or osteomyelitis. wound culture 08/23/2018 MRSA and Carbapenem-resistant Proteus 2) Peripheral vascular disease in gaudencio legs: s/p underwent successful superficial femoral artery revascularization. Further tibioperoneal trunk and posterior tibial revascularization will need to be performed as an outpatient due to restlessness. Recs: Stop cefepime and vancomycin for now Contact isolation until MRSA and Carbapenem-resistant Proteus is r/o Vascular f/u as an outpatient Start bactrim DS 2 tab q 12 hours total 10 days until 09/02/2018 to cover both isolate ID clinic f/u in 2-3 weeks Will follow Charu Plascencia MD Infectious Diseases Child And Family Counselor [facility], [facility] M [phone] O [phone] Subjective Date of service: 08/27/18 Principal diagnosis: left foot cellulitis Interval history: Patient reports feeling ok, no fever. Objective - Exam Narrative Exam: Constitutional: Alert, cooperative. No acute distress Head, Ears, Nose: Normocephalic, atraumatic. External ears, nose normal Eyes: Conjunctivae/corneas clear. No icterus. No ptosis. Neck: Supple, no meningeal signs Oral: edentulous, no thrush Cardiovascular: S1, S2 normal. Respiratory: Good air entry, clear to auscultation bilaterally GI: Soft, non-tender; bowel sounds normal. No peritoneal signs Musculoskeletal: Left foot with dry, scaly and hyperkeratotic skin, superficial wounds with slight warmth and tenderness. Bilateral hyperkeratotic toenails. +left foot blister Skin: No rash or abscess Hem/Lymphatic: No palpable cervical or supraclavicular nodes. No lymphangitis Psych: Mood ok. Affect normal Neurological: Awake, alert, oriented. No gross abnormality - Constitutional Vitals: Vital Signs Temp Pulse Resp BP Pulse Ox 98.5 F 74 20 160/85 97 08/27/18 06:00 08/27/18 06:00 08/27/18 06:00 08/27/18 06:00 08/27/18 06:00 Temperature -Last 24 Hours Temperature 98.5 F Temperature 98.4 F Temperature 98.5 F Temperature 98.2 F - Labs CBC & Chem 7: 08/26/18 05:07 08/26/18 05:07
[2018-08-27] MEDS: HALFPRIN EC PO SCH (10:07)
[2018-08-27] MEDS: SENOKOT PO SCH (10:07)
[2018-08-27] MEDS: LOVENOX SUB-Q SCH (10:07)
[2018-08-27] MEDS: PLAVIX PO SCH (10:07)
[2018-08-27] MEDS: LOPRESSOR PO SCH (10:07)
[2018-08-27] MEDS: SODIUM CHLORIDE FLUSH SYRINGE 10 ML IV SCH (10:09)
[2018-08-27] MEDS ORDERED: BACTRIM DS PO SCH (11:00)
--- NOTE | 2018-08-27 15:58 | Discharge Summary ---
Providers - Providers Date of Admission: 08/22/18 23:55 Date of discharge: 08/27/18 Attending physician: JAMILAH HAYDEN 08/23/18 00:02 Consult to Wound/ET Nurse [CONS] Routine Reason For Exam: wound eval 08/23/18 06:25 Consult to Physician [CONS] Routine Comment: Consulting Provider: HI MOLINA Physician Instructions: Reason For Exam: leg wounds 08/24/18 11:17 Consult to Physician [CONS] Routine Comment: Consulting Provider: MIGUEL MAO Physician Instructions: Reason For Exam: pad 08/25/18 15:45 Physical Therapy Evaluation and Treat [CONS] Routine Comment: Reason For Exam: Generalized weakness Primary care physician: DELMI BLAKELY Hospitalization Condition: Stable Hospital course: Patient is a 82-year-old man with a history of hypertension, COPD and Cirrhosis who presented to [facility] ED with non healing left foot ulcer for 1 month. The left foot got worse 2 days ago prior to hospitalization after he banged the left foot on the car. The foot developed purulent foul-smelling discharge. He status post outpatient antibiotic, cant recall what medication he took. Venous leg doppler neg for bilateral leg dvt Arterial leg doppler showed Hemodynamically significant stenosis detected in the distal left superficial femoral artery. Flow is seen to the feet bilaterally. Discharge Diagnoses: PAD with non healing MRSA and Proteus Perreni ulcer s/p successful superficial femoral artery revascularization on 08/24/18. Further tibioperoneal trunk and po sterior tibial revascularization will need to be performed as an outpatient with anesthesia due to patient not being able to continue further with the procedure today with conscious sedation due to restlessness. Vascular/IR following, input noted, Wound care needed Severe malnutrition bmi 18, poa: consult Registration Clerk Anemia, appears chronic: monitor cbc closely Hypertension-cont bp meds COPD; continue to monitor and nebs as needed Cirrhosis by history: monitor closely Disposition: DC-01 TO HOME OR SELFCARE Time spent for discharge: 36 minutes Core Measure Documentation - Palliative Care Palliative Care/ Comfort Measures: Not Applicable - Core Measures Any of the following diagnoses?: none - VTE Discharge Requirements Deep Vein Thrombosis/Pulmonary Embolism Present on Admission: No Has pt received <5 days of overlap therapy or INR<2.0: No Anticoagulant overlap therapy prescribed at discharge: No Contraindication No Overlap Therapy order at DC: Not Indicated Exam - Physical Exam Narrative exam: General: thin cachetic, Appears well, no distress, nontoxic, unkempt HEENT: Moist mucous membranes, extraocular muscles intact, no lymphadenopathy Neck: supple Cardiac: S1-S2 heard Lungs: clear to auscultation bilaterally Abdomen: soft , nontender, nondistended, bowel sounds positive Extremities: BL LE edema worse on Right R leg is swollen, with wound with a foul smelling discharge Skin: no rash or lesions Neurologic: no gross focal deficits Psych: calm, and cooperative - Constitutional Vitals: Temp Pulse Resp BP Pulse Ox 98.8 F 80 18 129/69 100 08/27/18 12:14 08/27/18 12:14 08/27/18 12:14 08/27/18 12:14 08/27/18 12:14 Plan Activity: other (no strenous activity unless cleared by Vascular Surgeon) Diet: low salt Additional Instructions: Vascular f/u as an outpatient. Start bactrim DS 2 tab q 12 hours total 10 days until 09/02/2018 to cover both isolate. ID clinic f/u in 2-3 weeks Follow up with: DELMI BLAKELY MD [Primary Care Provider] - 7 Days MIGUEL MAO MD [Staff Physician] - 7 Days HI MOLINA MD [Staff Physician] - 7 Days Prescriptions: Aspirin EC 81 mg PO QDAY #30 tablet. Sulfamethoxazole/Trimethoprim [Bactrim DS TAB] 2 each PO Q12HR 7 Days tablet Metoprolol [Lopressor TAB] 50 mg PO QDAY #30 tablet HYDROcodone/APAP 5-325 [[place] 5-325 mg TAB] 1 each PO Q6HR PRN #20 tablet PRN Reason: Pain , Severe (7-10) Clopidogrel [Plavix] 75 mg PO QDAY #30 tablet Sennosides Tab [Senokot] 8.6 mg PO Q12HR PRN #15 tablet PRN Reason: Constipation
--- NOTE | 2018-08-27 17:28 | Progress Note ---
Assessment and Plan 82-year-old male with nonhealing wound of the left lower extremity for 3 months with left lower extremity arterial and severe swelling (on amlodipine) with an element of neuropathy s/p revascularization of the left SFA. Will need tibial re vascularization as an outpatient. Patient will need to wear footwear that does not wear on the dorsum of the foot and will likely need a surgical boot. He will need to be involved with wound care and possibly the general surgeons for debridement. Patient has severe swelling of the lower extremity and is on amlodipine. I discussed this with the hospitalist and we discontinued amlodipine and she will switch him onto a different antihypertensive medication. Venous insuffiency study negative for venous insuffiency. Followup with TAMI in 2 weeks. Subjective Date of service: 08/27/18 Principal diagnosis: left foot cellulitis Interval history: groins are palpable without hematoma. left foot is warm. No left palpable pedal pulses. Discussed need to followup with TAMI. Objective - Constitutional Vitals: Vital Signs - 12hr 08/27/18 08/27/18 08/27/18 06:00 08:00 10:07 Temperature 98.5 F Pulse Rate 74 85 Respiratory 20 18 Rate Blood Pressure 160/85 133/74 O2 Sat by Pulse 97 Oximetry 08/27/18 08/27/18 10:08 12:14 Temperature 98.8 F Pulse Rate 80 Respiratory 18 Rate Blood Pressure 133/74 129/69 O2 Sat by Pulse 100 Oximetry General appearance: Present: no acute distress - EENT Eyes: EOM intact ENT: hearing intact - Respiratory Respiratory effort: normal Extremities: no ischemia, normal temperature, normal color, abnormal (bandaged LLE) - Psychiatric Psychiatric: appropriate mood/affect, cooperative - Labs CBC & Chem 7: 08/26/18 05:07 08/26/18 05:07 Medications & Allergies - Medications Allergies/Adverse Reactions: Allergies No Known Allergies Allergy (Verified 07/03/18 18:19) Home Medications: Home Medications Medication Instructions Recorded Confirmed Last Taken Type Aspirin EC 81 mg PO QDAY #30 tablet. 08/24/18 Unknown Rx Clopidogrel [Plavix] 75 mg PO QDAY #30 tablet 08/24/18 Unknown Rx Acetaminophen [Acetaminophen TAB] 650 mg PO Q4H PRN #15 tablet 08/27/18 Unknown Rx Furosemide [Lasix TAB] 20 mg PO QDAY #30 tablet 08/27/18 08/23/18 Unknown Rx HYDROcodone/APAP 5-325 [[place] 1 each PO Q6HR PRN #20 tablet 08/27/18 Unknown Rx 5-325 mg TAB] Metoprolol [Lopressor TAB] 50 mg PO QDAY #30 tablet 08/27/18 Unknown Rx Sennosides Tab [Senokot] 8.6 mg PO Q12HR PRN #15 tablet 08/27/18 Unknown Rx Sulfamethoxazole/Trimethoprim 2 each PO Q12HR 7 Days tablet 08/27/18 Unknown Rx [Bactrim DS TAB] Active Medications: Generic Name Dose Route Start Last Admin Trade Name Freq PRN Reason Stop Dose Admin Acetaminophen 650 mg 08/22/18 23:51 Tylenol PO Q4H PRN Pain MILD(1-3)/Fever >100.5/SHORE Acetaminophen/Hydrocodone Bitart 1 each 08/23/18 06:22 08/25/18 09:16 [place] 5/325 PO 1 each Q6H PRN Administration Pain (7-10) Aspirin 81 mg 08/25/18 10:00 08/27/18 10:07 Halfprin Ec PO 81 mg QDAY CHELE Administration Clopidogrel Bisulfate 75 mg 08/25/18 10:00 08/27/18 10:07 Plavix PO 75 mg QDAY CHELE Administration Enoxaparin Sodium 40 mg 08/23/18 10:00 08/27/18 10:07 Lovenox SUB-Q 40 mg QDAY CHELE Administration Hydralazine HCl 5 mg 08/23/18 01:13 08/24/18 20:13 Apresoline IV 5 mg Q6HR PRN Administration Blood Pressure Magnesium Hydroxide 30 ml 08/22/18 23:51 Milk Of Magnesia PO Q4H PRN Constipation Metoprolol Tartrate 50 mg 08/23/18 10:00 08/27/18 10:07 Lopressor PO 50 mg QDAY CHELE Administration Ondansetron HCl 4 mg 08/22/18 23:51 Zofran IV Q8H PRN Nausea And Vomiting Oxycodone/Acetaminophen 1 tab 08/22/18 23:51 Percocet 5/325 PO Q6H PRN Pain, Moderate (4-6) Senna 8.6 mg 08/22/18 23:45 08/27/18 10:07 Senokot PO 8.6 mg Q12HR CHELE Administration Sodium Chloride 10 ml 08/22/18 23:45 08/27/18 10:09 Sodium Chloride Flush Syringe 10 Ml IV 10 ml BID CHELE Administration Sodium Chloride 10 ml 08/22/18 23:51 Sodium Chloride Flush Syringe 10 Ml IV PRN PRN LINE FLUSH Trimethoprim/Sulfamethoxazole 2 each 08/27/18 11:00 08/27/18 10:53 Bactrim Ds PO 09/02/18 22:01 2 each Q12HR CHELE Administration
[2018-08-27 18:31] VITALS: BP 138/65
== END 2018-08-27 18:40 | disposition home or self-care (01) | DRG 270 ==
LOC: ED 21:02 → 3A 23:55
PROVIDERS: ADMIT Internal Medicine; ATTEND Internal Medicine
PROC: 04CL3ZZ Extirpation of Matter from Left Femoral Artery, Percutaneous Approach (ICD-10-PCS; principal; 2018-08-24)
PROC: 04CL3ZZ Extirpation of Matter from Left Femoral Artery, Percutaneous Approach (ICD-10-PCS; 2018-08-24)
PROC: 047L3Z1 Dilation of Left Femoral Artery using Drug-Coated Balloon, Percutaneous Approach (ICD-10-PCS; 2018-08-24)
PROC: 04QK3ZZ Repair Right Femoral Artery, Percutaneous Approach (ICD-10-PCS; 2018-08-24)
PROC: B41D1ZZ Fluoroscopy of Aorta and Bilateral Lower Extremity Arteries using Low Osmolar Contrast (ICD-10-PCS; 2018-08-24)
DX: I70.25 Atherosclerosis of native arteries of other extremities with ulceration (principal); E43 Unspecified severe protein-calorie malnutrition; L03.116 Cellulitis of left lower limb; Z68.1 Body mass index [BMI] 19.9 or less, adult; I10 Essential (primary) hypertension; J44.9 Chronic obstructive pulmonary disease, unspecified; F17.210 Nicotine dependence, cigarettes, uncomplicated; L97.529 Non-pressure chronic ulcer of other part of left foot with unspecified severity; S81.802A Unspecified open wound, left lower leg, initial encounter; K74.60 Unspecified cirrhosis of liver; D63.8 Anemia in other chronic diseases classified elsewhere; B95.62 Methicillin resistant Staphylococcus aureus infection as the cause of diseases classified elsewhere; B96.4 Proteus (mirabilis) (morganii) as the cause of diseases classified elsewhere; G62.9 Polyneuropathy, unspecified; X58.XXXA Exposure to other specified factors, initial encounter; Y93.89 Activity, other specified; Y92.89 Other specified places as the place of occurrence of the external cause; Y99.8 Other external cause status
CPT/HCPCS: 36415; 37225; 75625; 75716; 76937; 80048; 80053; 80202; 82140; 85025; 85027; 86140; 87076; 87116; 87186; 93306; 93925; 93970; 96365; 96375; 99406; G0378; C1714; C1760; C1769; C1884; C1887; C2623; J0360; J0690; J0692; J1200; J1644; J1650; J1940; J2250; J2543; J3010; J3370; J7040; J7050; Q9967

== ENCOUNTER 2018-10-02 10:59 | Inpatient (IN) | payer MEDICARE ==
--- NOTE | 2018-10-02 11:23 | Emergency Department Report ---
ED General Adult HPI - General Chief complaint: Extremity Problem,Nontraumatic Stated complaint: BILATERAL LEG PAIN Time Seen by Provider: 10/02/18 11:20 Source: patient, family Mode of arrival: Wheelchair Limitations: No Limitations - History of Present Illness Initial comments: 08/2018 Hospitalization Condition: Stable Hospital course: Patient is a 82-year-old man with a history of hypertension, COPD and Cirrhosis who presented to [facility] ED with non healing left foot ulcer for 1 month. The left foot got worse 2 days ago prior to hospitalization after he banged the left foot on the car. The foot developed purulent foul-smelling discharge. He status post outpatient antibiotic, cant recall what medication he took. Venous leg doppler neg for bilateral leg dvt Arterial leg doppler showed Hemodynamically significant stenosis detected in the distal left superficial femoral artery. Flow is seen to the feet bilaterally. Discharge Diagnoses: PAD with non healing MRSA and Proteus Perreni ulcer s/p successful superficial femoral artery revascularization on 08/24/18. Further tibioperoneal trunk and posterior tibial revascularization will need to be performed as an outpatient with anesthesia due to patient not being able to continue further with the procedure today with conscious sedation due to restlessness. Vascular/IR aicha corbin, input noted, Wound care needed Severe malnutrition bmi 18, poa: consult Ware Tester Anemia, appears chronic: monitor cbc closely Hypertension-cont bp meds COPD; continue to monitor and nebs as needed Cirrhosis by history: monitor closely Disposition: DC-01 TO HOME OR SELFCARE Time spent for discharge: 36 minutes - Related Data Previous Rx's Medication Instructions Recorded Last Taken Type Aspirin EC [Halfprin EC] 81 mg PO QDAY #30 tablet. 08/24/18 Unknown Rx Clopidogrel [Plavix] 75 mg PO QDAY #30 tablet 08/24/18 Unknown Rx Acetaminophen [Acetaminophen TAB] 650 mg PO Q4H PRN #15 tablet 08/27/18 Unknown Rx Furosemide [Lasix TAB] 20 mg PO QDAY #30 tablet 08/27/18 Unknown Rx HYDROcodone/APAP 5-325 [[place] 1 each PO Q6HR PRN #20 tablet 08/27/18 Unknown Rx 5-325 mg TAB] Metoprolol [Lopressor TAB] 50 mg PO QDAY #30 tablet 08/27/18 Unknown Rx Sennosides Tab [Senokot] 8.6 mg PO Q12HR PRN #15 tablet 08/27/18 Unknown Rx Sulfamethoxazole/Trimethoprim 2 each PO Q12HR 7 Days tablet 08/27/18 Unknown Rx [Bactrim DS TAB] Allergies Allergy/AdvReac Type Severity Reaction Status Date / Time No Known Allergies Allergy Verified 07/03/18 18:19 ED Review of Systems ROS: Stated complaint: BILATERAL LEG PAIN Other details as noted in HPI ED Past Medical Hx - Past Medical History Previous Medical History?: Yes Hx Hypertension: Yes Hx COPD: Yes Hx HIV: No - Surgical History Past Surgical History?: Yes - Social History Smoking Status: Current Every Day Smoker Substance Use Type: None - Medications Home Medications: Home Medications Medication Instructions Recorded Confirmed Last Taken Type Aspirin EC [Halfprin EC] 81 mg PO QDAY #30 tablet. 08/24/18 Unknown Rx Clopidogrel [Plavix] 75 mg PO QDAY #30 tablet 08/24/18 Unknown Rx Acetaminophen [Acetaminophen TAB] 650 mg PO Q4H PRN #15 tablet 08/27/18 Unknown Rx Furosemide [Lasix TAB] 20 mg PO QDAY #30 tablet 08/27/18 08/23/18 Unknown Rx HYDROcodone/APAP 5-325 [[place] 1 each PO Q6HR PRN #20 tablet 08/27/18 Unknown Rx 5-325 mg TAB] Metoprolol [Lopressor TAB] 50 mg PO QDAY #30 tablet 08/27/18 Unknown Rx Sennosides Tab [Senokot] 8.6 mg PO Q12HR PRN #15 tablet 08/27/18 Unknown Rx Sulfamethoxazole/Trimethoprim 2 each PO Q12HR 7 Days tablet 08/27/18 Unknown Rx [Bactrim DS TAB] ED Physical Exam - General Limitations: No Limitations ED Course Vital Signs 10/02/18 11:06 Temperature 98.2 F Pulse Rate 107 H Respiratory 18 Rate Blood Pressure 150/74 O2 Sat by Pulse 98 Oximetry Critical care attestation.: If time is entered above; I have spent that time in minutes in the direct care of this critically ill patient, excluding procedure time. ED Disposition Condition: Stable
--- NOTE | 2018-10-02 11:24 | Emergency Department Report ---
ED General Adult HPI - General Chief complaint: Extremity Problem,Nontraumatic Stated complaint: BILATERAL LEG PAIN Time Seen by Provider: 10/02/18 11:20 Source: patient, family Mode of arrival: Wheelchair Limitations: No Limitations - History of Present Illness Initial comments: 83-year-old male who states that he ran out of all his medicines since he left the hospital in August. Apparently he did not follow-up with vascular or the wound clinic for treatment of his foot ulcer. Foot ulcer had a nonhealing MRSA and Proteus positive wound. A outpatient vascular procedure was also recommended. The patient comes to the Hospital stating that his legs have been swollen for the last few weeks. He states that his left foot is painful. He appears to have a very old dressing on his left foot. He does not complain of shortness of breath. He does not complain of acute pain. He does not complain of fever or chills. 08/2018 Hospitalization Condition: Stable Hospital course: Patient is a 82-year-old man with a history of hypertension, COPD and Cirrhosis who presented to [facility] ED with non healing left foot ulcer for 1 month. The left foot got worse 2 days ago prior to hospitalization after he banged the left foot on the car. The foot developed purulent foul-smelling discharge. He status post outpatient antibiotic, cant recall what medication he took. Venous leg doppler neg for bilateral leg dvt Arterial leg doppler showed Hemodynamically significant stenosis detected in the distal left superficial femoral artery. Flow is seen to the feet bilaterally. Discharge Diagnoses: PAD with non healing MRSA and Proteus Perreni ulcer s/p successful superficial femoral artery revascularization on 08/24/18. Further tibioperoneal trunk and posterior tibial revascularization will need to be performed as an outpatient with anesthesia due to patient not being able to continue further with the procedure today with conscious sedation due to restlessness. Vascular/IR following, input noted, Wound care needed Severe malnutrition bmi 18, poa: consult [facility] Anemia, appears chronic: monitor cbc closely Hypertension-cont bp meds COPD; continue to monitor and nebs as needed Cirrhosis by history: monitor closely Disposition: DC-01 TO HOME OR SELFCARE Time spent for discharge: 36 minutes -: Gradual, week(s) Location: left, lower extremity Quality: aching Consistency: intermittent Improves with: none Worsens with: none Associated Symptoms: denies other symptoms - Related Data Previous Rx's Medication Instructions Recorded Last Taken Type Aspirin EC [Halfprin EC] 81 mg PO QDAY #30 tablet. 08/24/18 Unknown Rx Clopidogrel [Plavix] 75 mg PO QDAY #30 tablet 08/24/18 Unknown Rx Acetaminophen [Acetaminophen TAB] 650 mg PO Q4H PRN #15 tablet 08/27/18 Unknown Rx Furosemide [Lasix TAB] 20 mg PO QDAY #30 tablet 08/27/18 Unknown Rx HYDROcodone/APAP 5-325 [[place] 1 each PO Q6HR PRN #20 tablet 08/27/18 Unknown Rx 5-325 mg TAB] Metoprolol [Lopressor TAB] 50 mg PO QDAY #30 tablet 08/27/18 Unknown Rx Sennosides Tab [Senokot] 8.6 mg PO Q12HR PRN #15 tablet 08/27/18 Unknown Rx Sulfamethoxazole/Trimethoprim 2 each PO Q12HR 7 Days tablet 08/27/18 Unknown Rx [Bactrim DS TAB] Allergies Allergy/AdvReac Type Severity Reaction Status Date / Time No Known Allergies Allergy Verified 07/03/18 18:19 ED Review of Systems ROS: Stated complaint: BILATERAL LEG PAIN Other details as noted in HPI Constitutional: denies: chills, fever Eyes: denies: eye pain, eye discharge, vision change ENT: denies: ear pain, throat pain Respiratory: denies: cough, shortness of breath, wheezing Cardiovascular: denies: chest pain, palpitations Endocrine: no symptoms reported Gastrointestinal: denies: abdominal pain, nausea, diarrhea Genitourinary: denies: urgency, dysuria Musculoskeletal: as per HPI. denies: back pain, joint swelling, arthralgia Skin: as per HPI. denies: rash, lesions Neurological: denies: headache, weakness, paresthesias Psychiatric: denies: anxiety, depression Hematological/Lymphatic: denies: easy bleeding, easy bruising ED Past Medical Hx - Past Medical History Previous Medical History?: Yes Hx Hypertension: Yes Hx COPD: Yes Hx HIV: No - Surgical History Past Surgical History?: Yes - Social History Smoking Status: Current Every Day Smoker Substance Use Type: None - Medications Home Medications: Home Medications Medication Instructions Recorded Confirmed Last Taken Type Aspirin EC [Halfprin EC] 81 mg PO QDAY #30 tablet. 08/24/18 Unknown Rx Clopidogrel [Plavix] 75 mg PO QDAY #30 tablet 08/24/18 Unknown Rx Acetaminophen [Acetaminophen TAB] 650 mg PO Q4H PRN #15 tablet 08/27/18 Unknown Rx Furosemide [Lasix TAB] 20 mg PO QDAY #30 tablet 08/27/18 08/23/18 Unknown Rx HYDROcodone/APAP 5-325 [[place] 1 each PO Q6HR PRN #20 tablet 08/27/18 Unknown Rx 5-325 mg TAB] Metoprolol [Lopressor TAB] 50 mg PO QDAY #30 tablet 08/27/18 Unknown Rx Sennosides Tab [Senokot] 8.6 mg PO Q12HR PRN #15 tablet 08/27/18 Unknown Rx Sulfamethoxazole/Trimethoprim 2 each PO Q12HR 7 Days tablet 08/27/18 Unknown Rx [Bactrim DS TAB] ED Physical Exam - General Limitations: Other (extremely poor historian) General appearance: alert, in no apparent distress - Head Head exam: Present: atraumatic, normocephalic - Eye Eye exam: Present: normal appearance. Absent: scleral icterus - ENT ENT exam: Present: mucous membranes moist - Neck Neck exam: Present: normal inspection - Respiratory Respiratory exam: Present: normal lung sounds bilaterally. Absent: respiratory distress - Cardiovascular Cardiovascular Exam: Present: regular rate, normal rhythm. Absent: systolic murmur, diastolic murmur, rubs, gallop - GI/Abdominal GI/Abdominal exam: Present: soft, normal bowel sounds. Absent: distended, tenderness, guarding, rebound - Rectal Rectal exam: Present: deferred - Extremities Exam Extremities exam: Present: other (bilateral foot and leg edema. There is a full-thickness ulcer of the dorsum of the left foot with exudate. Peripheral pulse is present on Doppler exam.) - Back Exam Back exam: Present: normal inspection - Neurological Exam Neurological exam: Present: alert, oriented X3 - Psychiatric Psychiatric exam: Present: normal affect, normal mood - Skin Skin exam: Present: warm, dry, intact, normal color. Absent: rash ED Course Vital Signs 10/02/18 11:06 Temperature 98.2 F Pulse Rate 107 H Respiratory 18 Rate Blood Pressure 150/74 O2 Sat by Pulse 98 Oximetry ED Medical Decision Making - Lab Data Result diagrams: 10/02/18 11:41 10/02/18 11:41 Laboratory Results - last 24 hr 10/02/18 10/02/18 10/02/18 11:41 11:41 11:41 WBC 6.7 RBC 3.66 Hgb 9.7 L Hct 29.7 L MCV 81 L MCH 27 L MCHC 33 RDW 17.6 H Plt Count 331 Lymph % (Auto) 20.8 [place] % (Auto) 10.3 H Eos % (Auto) 0.9 Baso % (Auto) 0.3 Lymph # 1.4 [place] # 0.7 Eos # 0.1 Baso # 0.0 Seg Neutrophils % 67.7 Seg Neutrophils # 4.6 PT 13.7 INR 1.08 APTT 23.5 L Sodium 144 Potassium 4.7 Chloride 107.1 H Carbon Dioxide 30 Anion Gap 12 BUN 13 Creatinine 0.9 Estimated GFR > 60 BUN/Creatinine Ratio 14 Glucose 99 Lactic Acid Calcium 9.0 Magnesium 2.00 Total Bilirubin 0.20 Direct Bilirubin < 0.2 Indirect Bilirubin 0.0 AST 14 ALT 8 Alkaline Phosphatase 87 Total Creatine Kinase 57 CK-MB (CK-2) 1.3 CK-MB (CK-2) Rel Index 2.2 Troponin T < 0.010 NT-Pro-B Natriuret Pep 187.5 Total Protein 7.0 Albumin 3.5 L Albumin/Globulin Ratio 1.0 10/02/18 11:41 WBC RBC Hgb Hct MCV MCH MCHC RDW Plt Count Lymph % (Auto) [place] % (Auto) Eos % (Auto) Baso % (Auto) Lymph # [place] # Eos # Baso # Seg Neutrophils % Seg Neutrophils # PT INR APTT Sodium Potassium Chloride Carbon Dioxide Anion Gap BUN Creatinine Estimated GFR BUN/Creatinine Ratio Glucose Lactic Acid 1.20 Calcium Magnesium Total Bilirubin Direct Bilirubin Indirect Bilirubin AST ALT Alkaline Phosphatase Total Creatine Kinase CK-MB (CK-2) CK-MB (CK-2) Rel Index Troponin T NT-Pro-B Natriuret Pep Total Protein Albumin Albumin/Globulin Ratio Critical care attestation.: If time is entered above; I have spent that time in minutes in the direct care of this critically ill patient, excluding procedure time. ED Disposition Clinical Impression: Foot pain, left, Swelling of lower extremity, Wound infection, Peripheral vascular disease Foot ulcer, left Qualifiers: Non-pressure ulcer stage: with fat layer exposed Qualified Code(s): L97.522 - Non-pressure chronic ulcer of other part of left foot with fat layer exposed Disposition: DC-09 OP ADMIT IP TO THIS HOSP Is pt being admited?: Yes Does the pt Need Aspirin: Yes Condition: Stable Time of Disposition: 14:20
[2018-10-02 11:58] LABS: Basophils % (Auto) 0.3 % (0.0-1.8); Eosinophils # (Auto) 0.1 K/mm3 (0.0-0.4); Eosinophils % (Auto) 0.9 % (0.0-4.3); Hematocrit 29.7 % (35.5-45.6); Hemoglobin 9.7 gm/dl (11.8-15.2); Lymphocytes # (Auto) 1.4 K/mm3 (1.2-5.4); Lymphocytes % (Auto) 20.8 % (13.4-35.0); Mean Corpuscular HGB Conc 33 % (32-34); Mean Corpuscular Volume 81 fl (84-94); Monocytes # (Auto) 0.7 K/mm3 (0.0-0.8); Monocytes % (Auto) 10.3 % (0.0-7.3); Platelet Count 331 K/mm3 (140-440); Red Blood Count 3.66 M/mm3 (3.65-5.03); Red Cell Distribution Width 17.6 % (13.2-15.2)
[2018-10-02 12:17] LABS: Creatine Kinase MB 1.3 ng/mL (0.0-4.0)
[2018-10-02 12:18] LABS: Alanine Aminotransferase 8 units/L (7-56); Albumin 3.5 g/dL (3.9-5); BUN/Creatinine Ratio 14; Blood Urea Nitrogen 13 mg/dL (9-20); Hemolysis Index 0
--- NOTE | 2018-10-02 12:19 | XRay Report ---
CHEST 1 VIEW INDICATION: edema. COMPARISON: None FINDINGS: Support devices: None. Heart: Within normal limits. Lungs/Pleura: The lungs are hyperinflated consistent with advanced emphysematous changes. No evidence for infiltrate, pleural effusion or pneumothorax. Additional findings: None. IMPRESSION: Emphysema. No acute process. Signer Name: Hardy Godwin Jr, MD Signed: 10/02/2018 12:15 PM Workstation Name: [id number]
[2018-10-02 12:29] LABS: Bilirubin,Direct < 0.2 mg/dL (0-0.2)
[2018-10-02 12:50] LABS: INR 1.08 (0.87-1.13)
[2018-10-02 12:51] LABS: Partial Thromboplastin Time 23.5 Sec. (24.2-36.6)
--- NOTE | 2018-10-02 12:54 | Vascular Lab Report ---
DUPLEX DOPPLER LOWER EXTREMITY ARTERIAL, BILATERAL INDICATION: Bilateral leg swelling, peripheral arterial disease, ulcers. TECHNIQUE: Arterial duplex examination of both lower extremities performed using B-mode, color flow and spectral Doppler assessment. FINDINGS: RIGHT: Common Femoral Artery: PSV 112 cm/sec. Triphasic waveform. Proximal SFA: PSV 100 cm/sec. Biphasic waveform. Mid SFA: PSV 131 cm/sec. Triphasic waveform. Distal SFA: PSV 103 cm/sec. Triphasic waveform. Popliteal artery: PSV 66 cm/sec. Triphasic waveform. Posterior tibial artery: PSV 82 cm/sec. Biphasic waveform. Anterior tibial artery: PSV 23 cm/s. Monophasic waveform. Dorsalis Pedis Artery: PSV 22 cm/sec. Monophasic waveform. LEFT: Common Femoral Artery: PSV 128 cm/sec. Triphasic waveform. Proximal SFA: PSV 109 cm/sec. Triphasic waveform. Mid SFA: PSV 98 cm/sec. Monophasic waveform. Distal SFA: PSV 122 cm/sec. Monophasic waveform. Popliteal artery: PSV 76 cm/sec. Monophasic waveform. Posterior tibial artery: PSV 74 cm/sec. Monophasic waveform. Anterior tibial artery: PSV 99 cm/s. Monophasic waveform. Dorsalis Pedis Artery: PSV 20 cm/sec. Monophasic waveform. IMPRESSION: Bilateral lower extremity vessels appear patent with velocities as outlined above. Doppler Waveform: * Triphasic is normal. * Biphasic is abnormal if clear transition from triphasic signal along vascular tree. * Monophasic is abnormal. Signer Name: Hardy Godwin Jr, MD Signed: 10/02/2018 12:50 PM Workstation Name: [id number]
--- NOTE | 2018-10-02 13:07 | History and Physical Report ---
History of Present Illness Chief complaint: My left foot hurts History of present illness: 83 YO Male with HTN, Malnutrition, PVD, Nicotine Dependence, COPD presents to ED for evaluation. Pt states that he has experienced pain , redness, tenderness over the past 4 days with progressively worsening symptoms over the past 2 days. Pt also reports that he ran out of his antibiotics, and was unable to follow up with wound clinic for wound care. Pt acknowledges pain to his left foot is currently 5/10, constant, worsened with weight bearing, relieved with non weight bearing. Pt transported to [facility] via private vehicle. Pt seen and evaluated in ED and found to have LLE Cellulitis with foul smelling discharge from wound, Malnutrition, and PVD noncompliant with outpatient follow up care. Pt treated with IV antibiotic therapy and wound care consult. Prior would care culture and sensitivity reviewed. Pt admitted to SERGE unit and treated with pain control and IVF resuscitation therapy. Prior admission on 08/22/18 reviewed. All medication listed at time of admission was reconciled. Past History Past Medical History: COPD, hypertension, PVD, other (Malnutrition) Past Surgical History: No surgical history, Other (reviewed) Social history: single, smoking Family history: hypertension Medications and Allergies Allergies Allergy/AdvReac Type Severity Reaction Status Date / Time No Known Allergies Allergy Verified 07/03/18 18:19 Home Medications Medication Instructions Recorded Confirmed Last Taken Type Aspirin EC [Halfprin EC] 81 mg PO QDAY #30 tablet. 08/24/18 Unknown Rx Clopidogrel [Plavix] 75 mg PO QDAY #30 tablet 08/24/18 Unknown Rx Acetaminophen [Acetaminophen TAB] 650 mg PO Q4H PRN #15 tablet 08/27/18 Unknown Rx Furosemide [Lasix TAB] 20 mg PO QDAY #30 tablet 08/27/18 08/23/18 Unknown Rx HYDROcodone/APAP 5-325 [[place] 1 each PO Q6HR PRN #20 tablet 08/27/18 Unknown Rx 5-325 mg TAB] Metoprolol [Lopressor TAB] 50 mg PO QDAY #30 tablet 08/27/18 Unknown Rx Sennosides Tab [Senokot] 8.6 mg PO Q12HR PRN #15 tablet 08/27/18 Unknown Rx Sulfamethoxazole/Trimethoprim 2 each PO Q12HR 7 Days tablet 08/27/18 Unknown Rx [Bactrim DS TAB] Review of Systems Constitutional: no weight loss, no weight gain, no fever, no chills Ears, nose, mouth and throat: no ear discharge, no nasal congestion, no nasal discharge Cardiovascular: no chest pain, no palpitations, no rapid/irregular heart beat, no edema, no lightheadedness Respiratory: no cough, no excessive sputum Gastrointestinal: no abdominal pain, no nausea, no change in bowel habits Genitourinary Male: no dysuria, no flank pain, no urinary frequency, no urinary hesitancy, no nocturia Rectal: no pain, no incontinence Musculoskeletal: no neck stiffness, no neck pain, no arm numbness/tingling Integumentary: no deferred, no rash, no pruritis, no redness Neurological: no head injury, no transient paralysis, no weakness, no parathesias, no tingling, no seizures Endocrine: no cold intolerance, no heat intolerance, no excessive thirst, no nocturia Hematologic/Lymphatic: no easy bruising, no easy bleeding Allergic/Immunologic: no urticaria, no allergic rhinitis Exam - Constitutional Vitals: Temp Pulse Resp BP Pulse Ox 98.2 F 107 H 18 150/74 98 10/02/18 11:06 10/02/18 11:06 10/02/18 11:06 10/02/18 11:06 10/02/18 11:06 General appearance: Absent: no acute distress, mild distress - EENT Eyes: Present: PERRL ENT: hearing intact, clear oral mucosa - Neck Neck: Present: supple, normal ROM - Respiratory Respiratory effort: normal Respiratory: bilateral: CTA - Cardiovascular Heart Sounds: Present: S1 & S2. Absent: rub, click - Extremities Extremity abnormal: ulceration, erythema, pulses diminished, other (LLE) Peripheral Pulses: abnormal - Abdominal General gastrointestinal: Present: soft, non-tender, non-distended, normal bowel sounds Male genitourinary: Present: normal - Integumentary Integumentary: Present: clear, warm, dry - Musculoskeletal Musculoskeletal: generalized weakness - Psychiatric Psychiatric: appropriate mood/affect, intact judgment & insight - Neurologic Neurologic: CNII-XII intact, moves all extremities, no gait normal Results - Labs CBC & Chem 7: 10/02/18 11:41 10/02/18 11:41 Labs: Abnormal lab results 10/02/18 10/02/18 10/02/18 Range/Units 11:41 11:41 11:41 Hgb 9.7 L (11.8-15.2) gm/dl Hct 29.7 L (35.5-45.6) % MCV 81 L (84-94) fl MCH 27 L (28-32) pg RDW 17.6 H (13.2-15.2) % [place] % (Auto) 10.3 H (0.0-7.3) % APTT 23.5 L (24.2-36.6) Sec. Chloride 107.1 H (98-107) mmol/L Albumin 3.5 L (3.9-5) g/dL Assessment and Plan - Patient Problems (1) Cellulitis of left lower extremity without foot Current Visit: Yes Status: Acute Plan to address problem: IV antibiotic therapy, CBC, CMP, CT LLE, wound care consult, pain control, prior wound culture and sensitivity reviewed. IV bactrim administered. (2) COPD (chronic obstructive pulmonary disease) Current Visit: Yes Status: Acute Plan to address problem: stable, supplemental oxygen, nebulizer therapy, NIPPV as clinically indicated (3) Malnutrition Current Visit: Yes Status: Acute Qualifiers: Malnutrition type: protein-calorie malnutrition Plan to address problem: Encourage increased protein intake, dietary supplementation. (4) PVD (peripheral vascular disease) Current Visit: Yes Status: Acute Plan to address problem: supportive care, outpatient vascular surgery F/U (5) Nicotine dependence Current Visit: Yes Status: Acute Qualifiers: Substance use status: in withdrawal Plan to address problem: smoking cessation counseling, supportive care. (6) DVT prophylaxis Current Visit: Yes Status: Acute Plan to address problem: SCD to BLE while in bed, prophylactic heparin
[2018-10-02] MEDS ORDERED: TYLENOL PO PRN ×2 (13:09→13:30)
[2018-10-02] MEDS ORDERED: PROVENTIL IH PRN (13:30)
[2018-10-02] MEDS ORDERED: PERCOCET 5/325 PO PRN (13:30)
[2018-10-02] MEDS ORDERED: NORCO 5/325 PO PRN (13:30)
[2018-10-02] MEDS ORDERED: ZOFRAN IV PRN (13:30)
[2018-10-02] MEDS ORDERED: SODIUM CHLORIDE FLUSH SYRINGE 10 ML IV PRN (13:30)
[2018-10-02] MEDS ORDERED: MORPHINE IV PRN (13:30)
[2018-10-02] MEDS ORDERED: SENOKOT PO PRN (14:00)
[2018-10-02] MEDS: BACTRIM IV SCH (16:19)
[2018-10-02] MEDS: D5W IV SCH (16:19)
[2018-10-02] MEDS: LOPRESSOR PO SCH (16:20)
[2018-10-02] MEDS ORDERED: BACTRIM DS PO SCH (22:00)
[2018-10-02 23:15] LABS: Amphetamine Screen,Urine PRESUMPTIVE NEGATIVE; Benzodiazepines Screen,Urine PRESUMPTIVE NEGATIVE; Cannabinoid Screen,Urine PRESUMPTIVE NEGATIVE; Cocaine Screen,Urine PRESUMPTIVE NEGATIVE; Methadone Screen,Urine PRESUMPTIVE NEGATIVE; Opiate Screen,Urine PRESUMPTIVE NEGATIVE
[2018-10-02 23:25] LABS: Bilirubin,Urine NEG (Negative); Blood,Urine NEG (Negative); Color,Urine Yellow (Yellow); Mucus,Urine FEW /HPF; Protein,Urine <15 mg/dL mg/dL (Negative)
[2018-10-03] MEDS: D5W IV SCH ×3 (00:15→17:12)
[2018-10-03] MEDS: BACTRIM IV SCH ×3 (00:15→17:12)
[2018-10-03] MEDS: SODIUM CHLORIDE FLUSH SYRINGE 10 ML IV SCH ×3 (00:15→21:22)
[2018-10-03 07:17] LABS: Basophils % (Auto) 0.5 % (0.0-1.8); Eosinophils # (Auto) 0.1 K/mm3 (0.0-0.4); Eosinophils % (Auto) 1.1 % (0.0-4.3); Hematocrit 30.7 % (35.5-45.6); Hemoglobin 9.9 gm/dl (11.8-15.2); Lymphocytes # (Auto) 1.4 K/mm3 (1.2-5.4); Mean Corpuscular HGB Conc 32 % (32-34); Mean Corpuscular Volume 82 fl (84-94); Monocytes # (Auto) 0.8 K/mm3 (0.0-0.8); Monocytes % (Auto) 10.4 % (0.0-7.3); Platelet Count 330 K/mm3 (140-440); Red Blood Count 3.75 M/mm3 (3.65-5.03); Red Cell Distribution Width 17.7 % (13.2-15.2)
[2018-10-03 07:41] LABS: Alanine Aminotransferase 6 units/L (7-56); Albumin 3.1 g/dL (3.9-5); BUN/Creatinine Ratio 11; Blood Urea Nitrogen 9 mg/dL (9-20); Calcium 8.5 mg/dL (8.4-10.2); Hemolysis Index 3
--- NOTE | 2018-10-03 09:47 | Cat Scan Report ---
CT left lower extremity with contrast INDICATION: Chronic swelling of left leg. TECHNIQUE: Axial, coronal and sagittal CT imaging was performed from the left knee through the ankle after injec tion of 100 mL Omnipaque [address] scans at this location are performed using CT dose redu ction for [facility] by means of automated exposure control. COMPARISON: No relevant prior imaging study available. FINDINGS: Bones and joints: Osteopenia is noted without an acute fracture, dislocation or aggressive appearing osseous lesion. There is mild to moderate knee osteoarthritis. Soft tissues: Extensive edema is present throughout the visualized portions of the left lower extremi ty. No organized fluid collection/abscess is seen. There is mild generalized atherosclerosis. No ashley tional significant abnormality. Additional findings: None. IMPRESSION: 1. No acute osseous abnormality of the left lower extremity. 2. Suspected cellulitis without an organized fluid collection/abscess. Signer Name: Zain Eli MD Signed: 10/03/2018 9:43 AM Workstation Name: [id number]
[2018-10-03] MEDS: LOPRESSOR PO SCH (10:54)
[2018-10-03] MEDS: LASIX PO SCH (10:54)
[2018-10-03] MEDS: HALFPRIN EC PO SCH (10:54)
[2018-10-03] MEDS: PLAVIX PO SCH (10:54)
[2018-10-03] MEDS: LOVENOX SUB-Q SCH (10:55)
--- NOTE | 2018-10-03 13:05 | Progress Note ---
Assessment and Plan / Cellulites of left lower extremity foot IV antibiotic therapy, wound care consult, pain control, prior wound culture and sensitivity reviewed. IV bactrim started. We'll follow culture, / COPD (chronic obstructive pulmonary disease) stable, cont supplemental oxygen, nebulizer therapy, NIPPV as clinically indicated / Malnutrition Encourage increased protein intake, dietary supplementation. / PVD (peripheral vascular disease) supportive care, consult vascular for further recommendation / Nicotine dependence smoking cessation counseling, supportive care. / DVT prophylaxis SCD to BLE while in bed, prophylactic heparin Disposition: We'll follow culture results and vascular recommendation. Also consult PT Brief History: 83 YO Male with HTN, Malnutrition, PVD, Nicotine Dependence, COPD presents to ED for evaluation of pain , redness, tenderness over the past 4 days with progressively worsening symptoms over the past 2 days. Pt also reports that he ran out of his antibiotics, and was unable to follow up with wound clinic for wound care. Pt seen and evaluated in ED and found to have LLE Cellulitis with foul smelling discharge from wound, Malnutrition, and PVD noncompliant with outpatient follow up care. Pt treated with IV antibiotic therapy and wound care consulted. 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 He was recommended to have Further tibioperoneal trunk and posterior tibial revascularization to be performed as an outpatient. Radiological data: Left lower extremity CT: 1. No acute osseous abnormality of the left lower extremity. 2. Suspected cellulitis without an organized fluid collection/abscess. Hospitalist Physical exam: GENERAL: well-developed elderly -[place] male lying on bed appeared to be in no discomfort. HEENT: Normocephalic. Atraumatic. No conjunctival congestion or icterus. Patient has moist mucous membranes. NECK: Supple. Trachea midline. CHEST/LUNGS: Clear to auscultated bilaterally, breathing nonlabored. No wheezes crackles or rhonchi. HEART/CARDIOVASCULAR: Regular in rate and rhythm. S1 and S2 positive. ABDOMEN: Abdomen is soft, nontender. Patient has normal bowel sounds. SKIN: There is no rash. Scaly dry skin. NEURO: No focal motor deficit. Follows command. MUSCULOSKELETAL: No joint effusion or tenderness. EXTRIMITY: Left foot due to wound dressing PSYCH: Cooperative. Subjective Date of service: 10/03/18 Interval history: Patient seen and examined. Medical records and medication list reviewed. No acute event overnight noted by the RN. Patient denies any chest pain or difficulty breathing. Patient complains of left foot pain. Discussed plan of care at bedside with patient. Objective - Constitutional Vitals: Vital Signs - 12hr 10/03/18 10/03/18 10/03/18 05:29 10:18 10:54 Temperature 98.9 F Pulse Rate 87 69 Respiratory 28 H Rate Blood Pressure 138/78 132/68 O2 Sat by Pulse 100 96 Oximetry - Labs CBC & Chem 7: 10/03/18 06:49 10/03/18 06:49 Labs: Abnormal lab results 10/02/18 10/03/18 10/03/18 Range/Units 22:41 06:49 06:49 Hgb 9.9 L (11.8-15.2) gm/dl Hct 30.7 L (35.5-45.6) % MCV 82 L (84-94) fl MCH 26 L (28-32) pg RDW 17.7 H (13.2-15.2) % [place] % (Auto) 10.4 H (0.0-7.3) % ALT 6 L (7-56) units/L Albumin 3.1 L (3.9-5) g/dL Urine WBC (Auto) 14.0 H (0.0-6.0) /HPF
[2018-10-04] MEDS: D5W IV SCH ×3 (00:46→17:27)
[2018-10-04] MEDS: BACTRIM IV SCH ×3 (00:46→17:27)
[2018-10-04] MEDS: LOPRESSOR PO SCH (09:12)
[2018-10-04] MEDS: HALFPRIN EC PO SCH (09:12)
[2018-10-04] MEDS: LASIX PO SCH (09:12)
[2018-10-04] MEDS: LOVENOX SUB-Q SCH (09:12)
[2018-10-04] MEDS: SODIUM CHLORIDE FLUSH SYRINGE 10 ML IV SCH (09:13)
[2018-10-04] MEDS: PLAVIX PO SCH (09:13)
--- NOTE | 2018-10-04 16:38 | Progress Note ---
Assessment and Plan / Cellulites of left lower extremity foot IV antibiotic therapy, wound care consult, pain control, prior wound culture and sensitivity reviewed. IV bactrim started. We'll follow culture, / COPD (chronic obstructive pulmonary disease) stable, cont supplemental oxygen, nebulizer therapy, NIPPV as clinically indicated / Malnutrition Encourage increased protein intake, dietary supplementation. / PVD (peripheral vascular disease) supportive care, consult vascular for further recommendation / Nicotine dependence smoking cessation counseling, supportive care. / DVT prophylaxis SCD to BLE while in bed, prophylactic heparin Disposition: We'll follow culture results and vascular recommendation. Also consult PT Brief History: 83 YO Male with HTN, Malnutrition, PVD, Nicotine Dependence, COPD presents to ED for evaluation of pain , redness, tenderness over the past 4 days with progressively worsening symptoms over the past 2 days. Pt also reports that he ran out of his antibiotics, and was unable to follow up with wound clinic for wound care. Pt seen and evaluated in ED and found to have LLE Cellulitis with foul smelling discharge from wound, Malnutrition, and PVD noncompliant with outpatient follow up care. Pt treated with IV antibiotic therapy and wound care consulted. 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 He was recommended to have Further tibioperoneal trunk and posterior tibial revascularization to be performed as an outpatient. Radiological data: Left lower extremity CT: 1. No acute osseous abnormality of the left lower extremity. 2. Suspected cellulitis without an organized fluid collection/abscess. Hospitalist Physical exam: GENERAL: well-developed elderly -[place] male lying on bed appeared to be in no discomfort. HEENT: Normocephalic. Atraumatic. No conjunctival congestion or icterus. Patient has moist mucous membranes. NECK: Supple. Trachea midline. CHEST/LUNGS: Clear to auscultated bilaterally, breathing nonlabored. No wheezes crackles or rhonchi. HEART/CARDIOVASCULAR: Regular in rate and rhythm. S1 and S2 positive. ABDOMEN: Abdomen is soft, nontender. Patient has normal bowel sounds. SKIN: There is no rash. Scaly dry skin. NEURO: No focal motor deficit. Follows command. MUSCULOSKELETAL: No joint effusion or tenderness. EXTRIMITY: Left foot due to wound dressing PSYCH: Cooperative. Subjective Date of service: 10/04/18 Interval history: Patient seen and examined. Medical records and medication list reviewed. No acute event overnight noted by the RN. Patient denies any chest pain or difficulty breathing. Patient complains of left foot pain. Discussed plan of care at bedside with patient. Objective - Constitutional Vitals: Vital Signs - 12hr 10/04/18 10/04/18 10/04/18 05:25 12:00 12:28 Temperature 98.7 F 98.2 F Pulse Rate 65 66 Respiratory 18 18 Rate Blood Pressure 139/66 131/71 O2 Sat by Pulse 97 99 99 Oximetry - Labs CBC & Chem 7: 10/03/18 06:49 10/03/18 06:49
[2018-10-05] MEDS: D5W IV SCH ×2 (00:52→11:08)
[2018-10-05] MEDS: SODIUM CHLORIDE FLUSH SYRINGE 10 ML IV SCH ×3 (00:52→21:17)
[2018-10-05] MEDS: BACTRIM IV SCH ×2 (00:52→11:08)
--- NOTE | 2018-10-05 10:24 | Consultation ---
History of Present Illness - Reason for Consult Consult date: 10/05/18 Non-healing Left Foot Ulcer - History of Present Illness HPI: 83yo male currently hospitalized with non-healing left foot ulcer that has been present for several weeks. The patient denies any previous arterial intervention and arterial studies obtained concerning for arterial insufficiency. Patient denies lower extremity claudication and he quit smoking approx 30 years ago. PE: NAD, A&Ox3 RRR non-labored respirations palpable femoral pulses bilat 3-4cm necrotic ulcer noted on the dorsum of the left foot near the ankle Plan: Arterial studies reviewed plan for left leg angiogram today Past History Past Medical History: COPD, hypertension, PVD, other (Malnutrition) Past Surgical History: No surgical history, Other (reviewed) Social history: single, smoking Family history: hypertension Medications and Allergies Allergies Allergy/AdvReac Type Severity Reaction Status Date / Time No Known Allergies Allergy Verified 07/03/18 18:19 Home Medications Medication Instructions Recorded Confirmed Last Taken Type Aspirin EC [Halfprin EC] 81 mg PO QDAY #30 tablet. 08/24/18 Unknown Rx Clopidogrel [Plavix] 75 mg PO QDAY #30 tablet 08/24/18 Unknown Rx Acetaminophen [Acetaminophen TAB] 650 mg PO Q4H PRN #15 tablet 08/27/18 Unknown Rx Furosemide [Lasix TAB] 20 mg PO QDAY #30 tablet 08/27/18 08/23/18 Unknown Rx HYDROcodone/APAP 5-325 [[place] 1 each PO Q6HR PRN #20 tablet 08/27/18 Unknown Rx 5-325 mg TAB] Metoprolol [Lopressor TAB] 50 mg PO QDAY #30 tablet 08/27/18 Unknown Rx Sennosides Tab [Senokot] 8.6 mg PO Q12HR PRN #15 tablet 08/27/18 Unknown Rx Sulfamethoxazole/Trimethoprim 2 each PO Q12HR 7 Days tablet 08/27/18 Unknown Rx [Bactrim DS TAB] Active Meds: Active Medications Acetaminophen (Tylenol) 650 mg PO Q4H PRN PRN Reason: Pain MILD(1-3)/Fever >100.5/SHORE Acetaminophen/Hydrocodone Bitart ([place] 5/325) 1 each PO Q6HR PRN PRN Reason: Pain , Severe (7-10) Albuterol (Proventil) 2.5 mg IH Q4HRT PRN PRN Reason: Shortness Of Breath Aspirin (Halfprin Ec) 81 mg PO QDAY [facility] Last Admin: 10/04/18 09:12 Dose: 81 mg Documented by: Clopidogrel Bisulfate (Plavix) 75 mg PO QDAY [facility] Last Admin: 10/04/18 09:13 Dose: 75 mg Documented by: Enoxaparin Sodium (Lovenox) 30 mg SUB-Q QDAY [facility] Last Admin: 10/04/18 09:12 Dose: 30 mg Documented by: Furosemide (Lasix) 20 mg PO QDAY [facility] Last Admin: 10/04/18 09:12 Dose: 20 mg Documented by: Trimethoprim/Sulfamethoxazole (150 mg/ Dextrose) 509.375 mls @ 350 mls/hr IV Q8H [facility]; Protocol Last Admin: 10/05/18 00:52 Dose: 350 mls/hr Documented by: Metoprolol Tartrate (Lopressor) 50 mg PO QDAY [facility] Last Admin: 10/04/18 09:12 Dose: 50 mg Documented by: Ondansetron HCl (Zofran) 4 mg IV Q8H PRN PRN Reason: Nausea And Vomiting Senna (Senokot) 8.6 mg PO Q12HR PRN PRN Reason: Constipation Sodium Chloride (Sodium Chloride Flush Syringe 10 Ml) 10 ml IV BID [facility] Last Admin: 10/05/18 00:52 Dose: 10 ml Documented by: Sodium Chloride (Sodium Chloride Flush Syringe 10 Ml) 10 ml IV PRN PRN PRN Reason: LINE FLUSH Exam - Constitutional Vitals: Temp Pulse Resp BP Pulse Ox 98.1 F 70 18 144/72 99 10/05/18 04:44 10/05/18 04:44 10/05/18 04:44 10/05/18 04:44 10/05/18 04:44 Results - Labs CBC & Chem 7: 10/03/18 06:49 10/03/18 06:49
[2018-10-05] MEDS: LOPRESSOR PO SCH (11:01)
[2018-10-05] MEDS: LASIX PO SCH ×2 (11:14→17:57)
[2018-10-05] MEDS: PLAVIX PO SCH (11:14)
[2018-10-05] MEDS: HALFPRIN EC PO SCH (11:14)
[2018-10-05] MEDS: LOVENOX SUB-Q SCH (11:15)
[2018-10-05] MEDS ORDERED: NACL 0.9% 250ML 250 ML ONE (12:12)
[2018-10-05] MEDS: VERSED ONE ×4 (12:22→14:18)
[2018-10-05] MEDS: SUBLIMAZE ONE ×4 (12:24→14:18)
[2018-10-05] MEDS: XYLOCAINE 1%/ EPI 1:100,000 INFILTRATI ONE ×2 (12:25→12:47)
[2018-10-05] MEDS: HEPARIN/NS 5000 UNIT/500ML(CATH LAB) 1,000 ML IR ONE ×2 (12:26→12:48)
[2018-10-05] MEDS: HEPARIN 10,000 UNITS/10 ML ONE ×3 (13:03→14:31)
[2018-10-05] MEDS ORDERED: TRIDIL DRIP 50MG/250ML 50 MG/250 ML BOTTLE ONE (13:11)
[2018-10-05] MEDS ORDERED: NACL 0.9% 1000 ML 1,000 ML ONE (13:12)
[2018-10-05] MEDS: CALAN ONE ×2 (13:18→14:14)
[2018-10-05] MEDS ORDERED: SUBLIMAZE ONE (14:00)
[2018-10-05] MEDS ORDERED: VERSED ONE (14:00)
[2018-10-05] MEDS ORDERED: PROTAMINE SULFATE ONE (14:43)
--- NOTE | 2018-10-05 14:48 | Consultation ---
History of Present Illness - Reason for Consult Consult date: 10/05/18 - History of Present Illness 83 yo M PMhx HTn, PVD, COPD admitted to the hospital due to worsening pain and redness of the L foot. These symptoms began approximately 4 days ago and became acutely worse for the past 2 days. He had recently been seen here for a similar issue of the foot, for which he was seen by my partner. At that time her grew a CRE Proteus penneri and MRSA, and was discharged with Bactrim. Since completing that course of antibiotics (10 days) he began to worsen. He was unable to follow up with wound care. On presentation he was found to have cellulitis of the LLE and foul smelling discharge of the wound. Afebrile since admission with a normal white count. Currently receiving cefepime. A wound culture is growing P penneri again, with intermediate sensitivity to Imipenem. Imaging personally reviewed: LE CT: No acute osseous abnormality Duplex: patent CXR: Hyperinflated, no acute infectious focus Review of Systems: Bold if positive, otherwise negative General: fevers, chills, rigors HEENT: visual disturbance, diplopia, eye pain Respiratory: cough, sputum, hemoptysis, shortness of breath Cardiovascular: chest pain, syncope Gastrointestinal: nausea, vomiting, diarrhea, abdominal pain Genitourinary: dysuria, hematuria, flank pain Musculoskeletal: neck pain, back pain, joint pain, edema Neurologic: headaches, seizures Hematologic: easy bruising or bleeding Endocrine: night sweats, acute weight loss Skin: rash, jaundice, redness Psychiatric: suicidal, homicidal ideation Past History Past Medical History: COPD, hypertension, PVD, other (Malnutrition) Past Surgical History: No surgical history, Other (reviewed) Social history: single, smoking Family history: hypertension Medications and Allergies Allergies Allergy/AdvReac Type Severity Reaction Status Date / Time No Known Allergies Allergy Verified 07/03/18 18:19 Home Medications Medication Instructions Recorded Confirmed Last Taken Type Aspirin EC [Halfprin EC] 81 mg PO QDAY #30 tablet. 08/24/18 Unknown Rx Clopidogrel [Plavix] 75 mg PO QDAY #30 tablet 08/24/18 Unknown Rx Acetaminophen [Acetaminophen TAB] 650 mg PO Q4H PRN #15 tablet 08/27/18 Unknown Rx Furosemide [Lasix TAB] 20 mg PO QDAY #30 tablet 08/27/18 08/23/18 Unknown Rx HYDROcodone/APAP 5-325 [[place] 1 each PO Q6HR PRN #20 tablet 08/27/18 Unknown Rx 5-325 mg TAB] Metoprolol [Lopressor TAB] 50 mg PO QDAY #30 tablet 08/27/18 Unknown Rx Sennosides Tab [Senokot] 8.6 mg PO Q12HR PRN #15 tablet 08/27/18 Unknown Rx Sulfamethoxazole/Trimethoprim 2 each PO Q12HR 7 Days tablet 08/27/18 Unknown Rx [Bactrim DS TAB] Active Meds: Active Medications Acetaminophen (Tylenol) 650 mg PO Q4H PRN PRN Reason: Pain MILD(1-3)/Fever >100.5/SHORE Acetaminophen/Hydrocodone Bitart ([place] 5/325) 1 each PO Q6HR PRN PRN Reason: Pain , Severe (7-10) Albuterol (Proventil) 2.5 mg IH Q4HRT PRN PRN Reason: Shortness Of Breath Aspirin (Halfprin Ec) 81 mg PO QDAY [facility] Last Admin: 10/05/18 11:14 Dose: Not Given Documented by: Clopidogrel Bisulfate (Plavix) 75 mg PO QDAY [facility] Last Admin: 10/05/18 11:14 Dose: Not Given Documented by: Enoxaparin Sodium (Lovenox) 30 mg SUB-Q QDAY [facility] Last Admin: 10/05/18 11:15 Dose: Not Given Documented by: Furosemide (Lasix) 20 mg PO QDAY [facility] Last Admin: 10/05/18 11:14 Dose: Not Given Documented by: Cefepime HCl (Maxipime/Ns 2 Gm/100 Ml) 2 gm in 100 mls @ 200 mls/hr IV Q12HR [facility]; Protocol Metoprolol Tartrate (Lopressor) 50 mg PO QDAY [facility] Last Admin: 10/05/18 11:01 Dose: 50 mg Documented by: Ondansetron HCl (Zofran) 4 mg IV Q8H PRN PRN Reason: Nausea And Vomiting Senna (Senokot) 8.6 mg PO Q12HR PRN PRN Reason: Constipation Sodium Chloride (Sodium Chloride Flush Syringe 10 Ml) 10 ml IV BID [facility] Last Admin: 10/05/18 11:15 Dose: 10 ml Documented by: Sodium Chloride (Sodium Chloride Flush Syringe 10 Ml) 10 ml IV PRN PRN PRN Reason: LINE FLUSH Physical Examination - Physical Exam Narrative exam: Physical Exam: Constitutional: Alert, cooperative. No acute distress Head, Ears, Nose: Normocephalic, atraumatic. External ears, nose normal Eyes: Conjunctivae/corneas clear. No icterus. No ptosis. Neck: Supple, no meningeal signs Oral: dentition fair, no thrush Cardiovascular: S1, S2 normal. Respiratory: Good air entry, clear to auscultation bilaterally GI: Soft, non-tender; bowel sounds normal. No peritoneal signs. Musculoskeletal: No pedal edema, no cyanosis. Wound dressed, images viewed in chart Skin: No rash or abscess Hem/Lymphatic: No palpable cervical or supraclavicular nodes. No lymphangitis Psych: Mood ok. Affect normal Neurological: Awake, alert, oriented. No gross abnormality - Constitutional Vitals: Vital Signs Temp Pulse Resp BP Pulse Ox 98.1 F 71 16 141/71 99 10/05/18 11:00 10/05/18 11:01 10/05/18 11:00 10/05/18 11:01 10/05/18 11:00 Temperature -Last 24 Hours Temperature 98.1 F Temperature 98.1 F Temperature 97.5 F Temperature 98.8 F Results - Labs CBC & Chem 7: 10/03/18 06:49 10/03/18 06:49 - Imaging and Cardiology Chest x-ray: image reviewed Venous US: image reviewed Assessment and Plan Cultures: Urine culture 10/02/18- negative Wound culture 10/02/18 - P penneri, S aureus A/P: 83 yo M PMhx HTn, PVD, COPD admitted with worsening wound infection. 1. Wound infection - With a resistant gram negative with a similar resistance profile to his previous admission. Currently on cefepime. Can continue cefepime for now. Given the presence of deon S aureus and recent history of MRSA would start vancomycin. Recommend getting MRI to evaluate for underlying osteo as that may be why he failed outpatient, although more likely due to his non-compliance with wound care. 2. HTN 3. COPD 4. PVD Recs: - contact precautions - continue cefepime 2g q12h - start vancomycin dosed per pharmacy. Appreciate their assistance. Goal trough 15-20. - MRI of the L foot Thank you for the consult, we will continue to follow. Hung Guzman MD [facility] M: [phone] O: [phone] F: [phone]
[2018-10-05] MEDS ORDERED: PLAVIX ONE (15:04)
[2018-10-05] MEDS ORDERED: ALUM-MAG HYDROX-SIMETH 200-200-20MG/5ML ONE (15:05)
--- NOTE | 2018-10-05 15:15 | Post Operative Note ---
Pre-op diagnosis: Left Lower Extremity Critical Limb Ischemia Post-op diagnosis: same Findings: Infra-renal Aorta patent, origin of the common iliacs patent bilaterally, 30% stenosis of the distal right common iliac artery, left common iliac patent, rest of the iliac system patent bilaterally, left Common femoral, superficial femoral, profunda femoral and popliteal widely patent, 50% stenosis of the TP trunk, INSULATION SPRAYER of the origin of the AT, 90% stenosis of the proximal PT, rest of the PT patent with 1 vessel runoff to the foot with plantar vessels intact, proximal peroneal atretic with INSULATION SPRAYER of the mid peroneal Anesthesia: MAC, local Estimated blood loss: minimal Condition: stable Disposition: floor
--- NOTE | 2018-10-05 15:28 | Progress Note ---
Assessment and Plan / Cellulites of left lower extremity foot cont IV antibiotic therapy, wound care consult, pain control, prior wound culture and sensitivity reviewed. We'll follow final wound culture, ID consulted, plan for MRI / COPD (chronic obstructive pulmonary disease) stable, cont supplemental oxygen, nebulizer therapy, NIPPV as clinically saman cated / Malnutrition, moderate Encourage increased protein intake, dietary supplementation. / PVD (peripheral vascular disease) supportive care, consulted vascular for further recommendation -s/p arteriogram today / Nicotine dependence smoking cessation counseling, supportive care. / DVT prophylaxis SCD to BLE while in bed, prophylactic heparin Disposition: We'll follow culture results and ID recommendation. Also consulted PT Brief History: 83 YO Male with HTN, Malnutrition, PVD, Nicotine Dependence, COPD presents to ED for evaluation of pain , redness, tenderness over the past 4 days with progressively worsening symptoms over the past 2 days. Pt also reports that he ran out of his antibiotics, and was unable to follow up with wound clinic for wound care. Pt seen and evaluated in ED and found to have LLE Cellulitis with foul smelling discharge from wound, Malnutrition, and PVD noncompliant with outpatient follow up care. Pt treated with IV antibiotic therapy and wound care consulted. 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 He was recommended to have Further tibioperoneal trunk and posterior tibial revascularization to be performed as an outpatient. Radiological data: Left lower extremity CT: 1. No acute osseous abnormality of the left lower extremity. 2. Suspected cellulitis without an organized fluid collection/abscess. Hospitalist Physical exam: GENERAL: well-developed elderly -[place] male lying on bed appeared to be in no discomfort. HEENT: Normocephalic. Atraumatic. No conjunctival congestion or icterus. Patient has moist mucous membranes. NECK: Supple. Trachea midline. CHEST/LUNGS: Clear to auscultated bilaterally, breathing nonlabored. No wheezes crackles or rhonchi. HEART/CARDIOVASCULAR: Regular in rate and rhythm. S1 and S2 positive. ABDOMEN: Abdomen is soft, nontender. Patient has normal bowel sounds. SKIN: There is no rash. Scaly dry skin. NEURO: No focal motor deficit. Follows command. MUSCULOSKELETAL: No joint effusion or tenderness. EXTRIMITY: Left foot due to wound dressing PSYCH: Cooperative. Subjective Date of service: 10/05/18 Interval history: Patient seen and examined. Medical records and medication list reviewed. No acute event overnight noted by the RN. Patient denies any chest pain or difficulty breathing. Patient complains of left foot pain. Discussed plan of care at bedside with patient. Objective - Constitutional Vitals: Vital Signs - 12hr 10/05/18 10/05/18 10/05/18 04:44 10:00 11:00 Temperature 98.1 F 98.1 F Pulse Rate 70 71 Respiratory 18 20 16 Rate Blood Pressure 144/72 141/71 O2 Sat by Pulse 99 100 99 Oximetry 10/05/18 11:01 Temperature Pulse Rate 71 Respiratory Rate Blood Pressure 141/71 O2 Sat by Pulse Oximetry - Labs CBC & Chem 7: 10/03/18 06:49 10/03/18 06:49
[2018-10-05] MEDS ORDERED: VANCOMYCIN PHARMACY TO DOSE IV SCH (16:00)
[2018-10-05] MEDS: MAXIPIME/NS 2 GM/100 ML 2 GM/100 ML BAG IV SCH ×2 (16:30→21:17)
[2018-10-05] MEDS: VANCOMYCIN 1,250 MG in NACL 0.9% 250ML 250 ML IV SCH (17:57)
[2018-10-06] MEDS ORDERED: PLAVIX PO SCH (10:00)
--- NOTE | 2018-10-06 10:06 | Progress Note ---
Assessment and Plan Cultures: Urine culture 10/02/18- negative Wound culture 10/02/18 - P penneri, S aureus A/P: 83 yo M PMhx HTn, PVD, COPD admitted with worsening wound infection. 1. Wound infection - With a resistant gram negative with a similar resistance profile to his previous admission. Currently on cefepime. Can continue cefepime for now. Given the presence of S aureus and recent history of MRSA would start vancomycin. Recommend getting MRI to evaluate for underlying osteo as that may be why he failed outpatient, although more likely due to his non-compliance with wound care. 2. HTN 3. COPD 4. PVD Recs: - contact precautions - continue cefepime 2g q12h - continue vancomycin dosed per pharmacy. Appreciate their assistance. Goal trough 15-20. - follow-up MRI of the L foot [facility] M: [phone] O:[phone] Subjective Date of service: 10/06/18 Interval history: Patient seen and examined. Sitting up in beds. Reports no acute distress. No fevers. Objective - Exam Narrative Exam: Constitutional: Alert, cooperative. No acute distress Head, Ears, Nose: Normocephalic, atraumatic. External ears, nose normal Eyes: Conjunctivae/corneas clear. No icterus. No ptosis. Neck: Supple, no meningeal signs Oral: dentition fair, no thrush Cardiovascular: S1, S2 normal. Respiratory: Good air entry, clear to auscultation bilaterally GI: Soft, non-tender; bowel sounds normal. No peritoneal signs. Musculoskeletal: No pedal edema, no cyanosis. Wound dressed, images viewed in chart Skin: No rash or abscess Hem/Lymphatic: No palpable cervical or supraclavicular nodes. No lymphangitis Psych: Mood ok. Affect normal Neurological: Awake, alert, oriented. No gross abnormality - Constitutional Vitals: Vital Signs Temp Pulse Resp BP Pulse Ox 98.1 F 91 H 16 130/77 100 10/06/18 05:06 10/06/18 05:06 10/06/18 05:06 10/06/18 05:06 10/06/18 05:06 Temperature -Last 24 Hours Temperature 98.1 F Temperature 98.7 F Temperature 98.1 F Temperature 97.6 F Temperature 98.1 F - Labs CBC & Chem 7: 10/03/18 06:49 10/03/18 06:49
[2018-10-06] MEDS: MAXIPIME/NS 2 GM/100 ML 2 GM/100 ML BAG IV SCH ×2 (10:18→22:04)
[2018-10-06] MEDS: LOVENOX SUB-Q SCH (10:18)
[2018-10-06] MEDS: LOPRESSOR PO SCH (10:19)
[2018-10-06] MEDS: PLAVIX PO SCH (10:19)
[2018-10-06] MEDS: HALFPRIN EC PO SCH (10:19)
[2018-10-06] MEDS: LASIX PO SCH (10:19)
[2018-10-06] MEDS: SODIUM CHLORIDE FLUSH SYRINGE 10 ML IV SCH ×2 (10:20→22:04)
--- NOTE | 2018-10-06 14:56 | Progress Note ---
Assessment and Plan / Cellulites of left lower extremity foot cont IV antibiotic therapy, wound care consult, pain control, prior wound culture and sensitivity reviewed. Wound culture growing staph aureus - final antibiotic sensitivity pending, placed on contact isolation We'll follow final wound culture, ID consulted, plan for MRI -pending / COPD (chronic obstructive pulmonary disease) stable, cont supplemental oxygen, nebulizer therapy, NIPPV as clinically indicated / Malnutrition, moderate Encourage increased protein intake, dietary supplementation. / PVD (peripheral vascular disease) supportive care, consulted vascular for further recommendation -s/p arteriogram yesterday / Nicotine dependence smoking cessation counseling, supportive care. / DVT prophylaxis SCD to BLE while in bed, prophylactic heparin Disposition: We'll follow culture results and ID recommendation. Also consulted PT Brief History: 83 YO Male with HTN, Malnutrition, PVD, Nicotine Dependence, COPD presents to ED for evaluation of pain , redness, tenderness over the past 4 days with progressively worsening symptoms over the past 2 days. Pt also reports that he ran out of his antibiotics, and was unable to follow up with wound clinic for wound care. Pt seen and evaluated in ED and found to have LLE Cellulitis with foul smelling discharge from wound, Malnutrition, and PVD noncompliant with outpatient follow up care. Pt treated with IV antibiotic therapy and wound care consulted. 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 He was recommended to have Further tibioperoneal trunk and posterior tibial revascularization to be performed as an outpatient. Radiological data: Left lower extremity CT: 1. No acute osseous abnormality of the left lower extremity. 2. Suspected cellulitis without an organized fluid collection/abscess. Hospitalist Physical exam: GENERAL: well-developed elderly -[place] male lying on bed appeared to be in no discomfort. HEENT: Normocephalic. Atraumatic. No conjunctival congestion or icterus. Patient has moist mucous membranes. NECK: Supple. Trachea midline. CHEST/LUNGS: Clear to auscultated bilaterally, breathing nonlabored. No wheezes crackles or rhonchi. HEART/CARDIOVASCULAR: Regular in rate and rhythm. S1 and S2 positive. ABDOMEN: Abdomen is soft, nontender. Patient has normal bowel sounds. SKIN: There is no rash. Scaly dry skin. NEURO: No focal motor deficit. Follows command. MUSCULOSKELETAL: No joint effusion or tenderness. EXTRIMITY: Left foot due to wound dressing PSYCH: Cooperative. Subjective Date of service: 10/06/18 Interval history: Patient seen and examined. Medical records and medication list reviewed. No acute event overnight noted by the RN. Patient denies any chest pain or difficulty breathing. Patient complains of left foot pain. Discussed plan of care at bedside with patient. Objective - Constitutional Vitals: Vital Signs - 12hr 10/06/18 10/06/18 10/06/18 05:06 10:00 10:19 Temperature 98.1 F Pulse Rate 91 H 91 H Respiratory 16 Rate Blood Pressure 130/77 130/77 O2 Sat by Pulse 100 100 Oximetry 10/06/18 11:51 Temperature 99.3 F Pulse Rate 84 Respiratory 16 Rate Blood Pressure 138/66 O2 Sat by Pulse 98 Oximetry - Labs CBC & Chem 7: 10/03/18 06:49 10/03/18 06:49 Labs: Abnormal lab results 10/05/18 10/05/18 Range/Units 13:20 14:49 Activated Clotting Time 246 H 219 H (74-137)
[2018-10-06] MEDS: VANCOMYCIN 1,250 MG in NACL 0.9% 250ML 250 ML IV SCH (18:55)
--- NOTE | 2018-10-07 04:44 | Operative Report ---
STAFF SURGEON: Wu Brown MD PREOPERATIVE DIAGNOSIS: Left lower extremity critical limb ischemia. POSTOPERATIVE DIAGNOSIS: Left lower extremity critical limb ischemia. PROCEDURES PERFORMED: 1. Right femoral arterial percutaneous access with ultrasound guidance. 2. Diagnostic aortogram with radiologic supervision and interpretation. 3. Left lower extremity angiogram with third order catheter placement with radiologic supervision and interpretation. 4. Left tibioperoneal trunk and posterior tibial atherectomy with 1.25 solid CSI Orbital atherectomy device and angioplasty with 2.5-3 mm tapered balloon. 5. Closure of right femoral access with a Mynx closure device. 6. Monitored conscious sedation for 2 hours and 2 minutes. COMPLICATIONS: None. ESTIMATED BLOOD LOSS: Less than 10 mL. ANESTHESIA: Local MAC. ANGIOGRAPHIC FINDINGS: The infrarenal aorta was widely patent. The origin of the common iliac was patent bilaterally. There was 30% stenosis of the distal right common iliac artery. The left common iliac artery was widely patent. The rest of the iliac system was patent bilaterally. Left common femoral, superficial femoral, profunda femoral and popliteal arteries were widely patent. There was a 50% stenosis of the tibioperoneal trunk. Complete total occlusion of the origin of the anterior tibial artery with 90% stenosis of the proximal posterior tibial artery. The rest of the posterior tibial artery was widely patent with a 1-vessel runoff to the foot. The plantar vessel was then tacked. The proximal peroneal artery was atretic throughout with a complete total occlusion of the mid peroneal artery. INDICATIONS FOR PROCEDURE: This is an 83-year-old gentleman hospitalized with a nonhealing left foot ulcer that has been present for several weeks. The patient had arterial studies that were concerning for arterial insufficiency. Therefore, vascular consultation was obtained for evaluation and possible intervention. The patient was explained the risks, benefits and alternatives of the procedure, expressed understanding and wished to proceed. DESCRIPTION OF PROCEDURE: After appropriate consent was obtained, the patient was brought back to the laborer pole crew, placed on the table in supine position. Both groins were prepped and draped in the usual sterile fashion with ChloraPrep. Appropriate timeout was performed, indicating correct patient, procedure and time of procedure. We then began the intervention by obtaining a percutaneous access of the right common femoral artery using micropuncture technique under ultrasound guidance was obtained. Next, a needle was exchanged for micropuncture sheath using Seldinger technique. We then proceeded to exchange for a 5-Mosotho sheath over a stiff J wire, then a Glidewire and Omniflush catheter was advanced into the infrarenal aorta. A diagnostic aortogram was performed, which demonstrated the findings noted above. With this, we then proceeded to cannulate the left iliac system with a combination of Omniflush catheter and Glidewire. Omniflush catheter was advanced into the distal external iliac artery, then a series of diagnostic imaging of the left lower extremity was performed, which demonstrated the findings noted above. We got better imaging of the tibial runoff and the Glidewire was advanced into the distal popliteal artery. TrailBlazer catheter was then advanced into the distal popliteal artery and a series of imaging was performed, which demonstrated the findings noted above. With this, the patient was then given heparin intravenously. After appropriate timeout had elapsed, an Amplatz wire was advanced through the TrailBlazer into the popliteal artery. TrailBlazer was removed as well as the 5-Mosotho sheath and exchanged for a 6-Mosotho 45 long sheath, which was advanced over the bifurcation into the left superficial femoral artery. The Amplatz wire was then exchanged for TrailBlazer catheter and a V-18 wire. These were then both advanced into the tibioperoneal trunk. A series of maneuvers were then performed in order to cannulate and cross the lesion in the posterior tibial artery. Multiple catheters and wires were used to do so and was eventually crossed with a combination of angled 0.014 TrailBlazer catheter and PT Choice was able to cross the 90% lesion in the posterior tibial artery. This was then advanced into the distal posterior tibial artery. A diagnostic imaging was performed to confirm that we were within the true lumen of the vessel. Then, a Viper wire was then placed into the distal posterior tibial artery. Catheter was removed and a 1.25 solid CSI Orbital atherectomy device was then placed above the lesion in the tibioperoneal trunk and the atherectomy of the tibioperoneal trunk and proximal posterior tibial artery were performed under low and 2 medium settings. Once complete, then the device was removed. A 2.5-3 mm tapered balloon was then adequately prepped and placed across both lesions and was insufflated to low profile for approximately 3 minutes. Once complete, the balloon was removed. Then, attempt was made to perform balloon angioplasty with a drug-coated balloon; however, due to the severe angulation of the takeoff of the posterior tibial artery, the balloon was unable to be advanced across the lesions. This was then removed and a completion angiogram was performed, which demonstrated less than 10% residual stenosis across the lesion of the tibioperoneal trunk and posterior tibial artery with intact runoff to the foot. With this, we then proceeded to remove the Viper wire and the long 6-Mosotho sheath was then exchanged for a short 6-Mosotho sheath over the Amplatz wire. The wire was then removed and Mynx closure device was deployed after protamine administration was deployed adequately and digital compression was held at the access site for further hemostasis. The patient tolerated the procedure well. He emerged from the conscious sedation and was sent to recovery in stable condition. [facility]# [id number] ANA/FAYE
--- NOTE | 2018-10-07 07:25 | Magnetic Resonance Report ---
MRI left foot without contrast INDICATION: Wound, concern for osteo. COMPARISON: Left foot radiographs from 08/25/2018 FINDINGS: A skin marker has been placed along the dorsal/lateral aspect of the hindfoot where there is a small soft tissue wound. There is a small underlying collection measuring 0.9 x 0.5 x 1.2 cm in maximal AP, transverse, and CC dimensions as measured on image 18 of series 8 and image 17 of series 6. There is no bone destruction or bone marrow edema to suggest osteomyelitis. No significant gerry osteal edema. Otherwise there are degenerative changes throughout the foot. There is no discrete tendon or ligamen t tear. Mild generalized edema is present throughout the foot, especially the dorsum of the foot. IMPRESSION: Small soft tissue wound with tiny adjacent superficial abscess and generalized edema. N o evidence of osteomyelitis. Signer Name: Damien Parrish MD Signed: 10/07/2018 7:21 AM Workstation Name: [id number]
[2018-10-07] MEDS: MAXIPIME/NS 2 GM/100 ML 2 GM/100 ML BAG IV SCH (11:50)
[2018-10-07] MEDS: LASIX PO SCH (11:50)
[2018-10-07] MEDS: HALFPRIN EC PO SCH (11:50)
[2018-10-07] MEDS: LOVENOX SUB-Q SCH (11:50)
[2018-10-07] MEDS: PLAVIX PO SCH (11:51)
[2018-10-07] MEDS: SODIUM CHLORIDE FLUSH SYRINGE 10 ML IV SCH (11:51)
[2018-10-07] MEDS: LOPRESSOR PO SCH (11:58)
--- NOTE | 2018-10-07 14:17 | Progress Note ---
Assessment and Plan Cultures: Urine culture 10/02/18- negative Wound culture 10/02/18 - P penneri, S aureus A/P: 83 yo M PMhx HTn, PVD, COPD admitted with worsening wound infection. 1. Wound infection - With a resistant gram negative with a similar resistance profile to his previous admission. Currently on cefepime. Can continue cefepime for now. Given the presence of S aureus and recent history of MRSA would start vancomycin. MRI showed small soft tissue wound with tiny adjacent superficial abscess and generalized edema. No evidence of osteomyelitis. 2. HTN 3. COPD 4. PVD Recs: - contact precautions - continue cefepime 2g q12h - continue vancomycin dosed per pharmacy. Appreciate their assistance. Goal trough 15-20. -Anticipate discharge on Bactrim DS BID for two weeks -follow up ID clinic in 2 weeks- sent to outsole scheduler [facility] M: [phone] O:[phone] Subjective Date of service: 10/07/18 Interval history: Patient seen and examined. Sitting up in beds. Reports no acute distress. No fevers. Objective - Exam Narrative Exam: Constitutional: Alert, cooperative. No acute distress Head, Ears, Nose: Normocephalic, atraumatic. External ears, nose normal Eyes: Conjunctivae/corneas clear. No icterus. No ptosis. Neck: Supple, no meningeal signs Oral: dentition fair, no thrush Cardiovascular: S1, S2 normal. Respiratory: Good air entry, clear to auscultation bilaterally GI: Soft, non-tender; bowel sounds normal. No peritoneal signs. Musculoskeletal: No pedal edema, no cyanosis. Wound dressed, images viewed in chart Skin: No rash or abscess Hem/Lymphatic: No palpable cervical or supraclavicular nodes. No lymphangitis Psych: Mood ok. Affect normal Neurological: Awake, alert, oriented. No gross abnormality - Constitutional Vitals: Vital Signs Temp Pulse Resp BP Pulse Ox 98.0 F 81 16 115/59 99 10/07/18 11:45 10/07/18 11:58 10/07/18 11:45 10/07/18 11:58 10/07/18 11:45 Temperature -Last 24 Hours Temperature 98.0 F Temperature 98.4 F Temperature 98.2 F - Labs CBC & Chem 7: 10/03/18 06:49 10/03/18 06:49
--- NOTE | 2018-10-07 15:04 | Progress Note ---
Subjective Date of service: 10/07/18 Interval history: s/p left leg endovascular revascularization patient doing well left leg warm and well perfused right groin access soft continue ASA and plavix patient to benefit from close wound care follow-up ok to d/c from my standpoint once medically stable follow-up 2 weeks Objective - Constitutional Vitals: Vital Signs - 12hr 10/07/18 10/07/18 10/07/18 05:12 11:45 11:58 Temperature 98.4 F 98.0 F Pulse Rate 81 89 81 Respiratory 16 16 Rate Blood Pressure 129/72 101/66 115/59 O2 Sat by Pulse 98 99 Oximetry - Labs CBC & Chem 7: 10/03/18 06:49 10/03/18 06:49 Medications & Allergies - Medications Allergies/Adverse Reactions: Allergies No Known Allergies Allergy (Verified 07/03/18 18:19) Home Medications: Home Medications Medication Instructions Recorded Confirmed Last Taken Type Aspirin EC [Halfprin EC] 81 mg PO QDAY #30 tablet. 08/24/18 10/06/18 Unknown Rx Clopidogrel [Plavix] 75 mg PO QDAY #30 tablet 08/24/18 10/06/18 Unknown Rx Acetaminophen [Acetaminophen TAB] 650 mg PO Q4H PRN #15 tablet 08/27/18 10/06/18 Unknown Rx Furosemide [Lasix TAB] 20 mg PO QDAY #30 tablet 08/27/18 10/06/18 Unknown Rx HYDROcodone/APAP 5-325 [[place] 1 each PO Q6HR PRN #20 tablet 08/27/18 10/06/18 Unknown Rx 5-325 mg TAB] Metoprolol [Lopressor TAB] 50 mg PO QDAY #30 tablet 08/27/18 10/06/18 Unknown Rx Sennosides Tab [Senokot] 8.6 mg PO Q12HR PRN #15 tablet 08/27/18 10/06/18 Unknown Rx Sulfamethoxazole/Trimethoprim 2 each PO Q12HR 7 Days tablet 08/27/18 10/06/18 Unknown Rx [Bactrim DS TAB] Active Medications: Generic Name Dose Route Start Last Admin Trade Name Freq PRN Reason Stop Dose Admin Acetaminophen 650 mg 10/02/18 13:30 Tylenol PO Q4H PRN Pain MILD(1-3)/Fever >100.5/SHORE Acetaminophen/Hydrocodone Bitart 1 each 10/02/18 13:30 10/07/18 11:50 [place] 5/325 PO 1 each Q6HR PRN Administration Pain , Severe (7-10) Albuterol 2.5 mg 10/02/18 13:30 Proventil IH Q4HRT PRN Shortness Of Breath Aspirin 81 mg 10/03/18 10:00 10/07/18 11:50 Halfprin Ec PO 81 mg QDAY CHELE Administration Clopidogrel Bisulfate 75 mg 10/03/18 10:00 10/07/18 11:51 Plavix PO 75 mg QDAY CHELE Administration Enoxaparin Sodium 30 mg 10/03/18 10:00 10/07/18 11:50 Lovenox SUB-Q 30 mg QDAY CHELE Administration Furosemide 20 mg 10/03/18 10:00 10/07/18 11:50 Lasix PO 20 mg QDAY CHELE Administration Cefepime HCl 2 gm in 100 mls @ 200 mls/hr 10/05/18 14:00 10/07/18 11:50 Maxipime/Ns 2 Gm/100 Ml IV 200 mls/hr Q12HR CHELE Administration Protocol Vancomycin HCl 1,250 mg/ 275 mls @ 137.5 mls/hr 10/05/18 18:00 10/06/18 18:55 Sodium Chloride IV 137.5 mls/hr Q24H CHELE Administration Metoprolol Tartrate 50 mg 10/02/18 14:00 10/07/18 11:58 Lopressor PO 50 mg QDAY CHELE Administration Ondansetron HCl 4 mg 10/02/18 13:30 Zofran IV Q8H PRN Nausea And Vomiting Senna 8.6 mg 10/02/18 14:00 Senokot PO Q12HR PRN Constipation Sodium Chloride 10 ml 10/02/18 22:00 10/07/18 11:51 Sodium Chloride Flush Syringe 10 Ml IV 10 ml BID CHELE Administration Sodium Chloride 10 ml 10/02/18 13:30 Sodium Chloride Flush Syringe 10 Ml IV PRN PRN LINE FLUSH
--- NOTE | 2018-10-07 16:19 | Discharge Summary ---
Providers - Providers Date of Admission: 10/02/18 13:07 Date of discharge: 10/07/18 Attending physician: DRAKE CARMICHAEL 10/02/18 13:09 Consult to Wound/ET Nurse [CONS] Routine Reason For Exam: wound eval 10/02/18 15:41 Consult to Dietitian/Nutrition [CONS] Routine Physician Instructions: Reason For Exam: Reason for Consult: Poor oral intake 10/04/18 11:48 Consult to Physician [CONS] Routine Comment: Consulting Provider: MIGUEL MAO Physician Instructions: Reason For Exam: non healing foot ulcer 10/04/18 16:37 Physical Therapy Evaluation and Treat [CONS] Routine Comment: Reason For Exam: placement 10/05/18 12:12 Consult to Physician [CONS] Routine Comment: Consulting Provider: LONG GODFREY Physician Instructions: Reason For Exam: left foot infected wound ulcer 10/07/18 12:15 Physical Therapy Evaluation and Treat [CONS] Routine Comment: Reason For Exam: Eval and Treat Hospitalization Condition: Stable Pertinent studies: CXR, LLE MRI, LLE CT, LLE arterial doppler Hospital course: 83 YO Male with HTN, Malnutrition, PVD, Nicotine Dependence, COPD presents to ED for evaluation of pain , redness, tenderness over the past 4 days with progressively worsening symptoms over the past 2 days. Pt also reports that he ran out of his antibiotics, and was unable to follow up with wound clinic for wound care. Pt seen and evaluated in ED and found to have LLE Cellulitis with foul smelling discharge from wound, Malnutrition, and PVD noncompliant with outpatient follow up care. Pt treated with IV antibiotic therapy and wound care consulted. 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 He was recommended to have Further tibioperoneal trunk and posterior tibial revascularization to be performed as an outpatient. Radiological data: Left lower extremity CT: 1. No acute osseous abnormality of the left lower extremity. 2. Suspected cellulitis without an organized fluid collection/abscess. Discharge diagnosis and management: / Cellulites of left lower extremity foot with infected non healing ulcer - POA Placed on IV antibiotic therapy, wound care consulted, prior wound culture and sensitivity reviewed. Wound culture growing staph aureus/MSSA and gm -ve rods, ID consulted, CT/MRI showed LLE showed no osteomylitis discharge abx arranged per ID recommendation / COPD (chronic obstructive pulmonary disease) stable, cont supplemental oxygen, nebulizer therapy, NIPPV as clinically indicated / Malnutrition, moderate Encourage increased protein intake, dietary supplementation. / PVD (peripheral vascular disease) supportive care, consulted vascular for further recommendation -s/p arteriogram yesterday / Nicotine dependence smoking cessation counseling, supportive care. / DVT prophylaxis SCD to BLE while in bed, prophylactic heparin Disposition: home with Hospitalist Physical exam: GENERAL: well-developed elderly -[place] male lying on bed appeared to be in no discomfort. HEENT: Normocephalic. Atraumatic. No conjunctival congestion or icterus. Patient has moist mucous membranes. NECK: Supple. Trachea midline. CHEST/LUNGS: Clear to auscultated bilaterally, breathing nonlabored. No wheezes crackles or rhonchi. HEART/CARDIOVASCULAR: Regular in rate and rhythm. S1 and S2 positive. ABDOMEN: Abdomen is soft, nontender. Patient has normal bowel sounds. SKIN: There is no rash. Scaly dry skin. NEURO: No focal motor deficit. Follows command. MUSCULOSKELETAL: No joint effusion or tenderness. EXTRIMITY: Left foot due to wound dressing PSYCH: Cooperative. Disposition: [id number] HOME UNDER HOME [facility] Time spent for discharge: 34 minutes Core Measure Documentation - Palliative Care Palliative Care/ Comfort Measures: Not Applicable - Core Measures Any of the following diagnoses?: none Exam - Constitutional Vitals: Temp Pulse Resp BP Pulse Ox 98.0 F 81 16 115/59 99 10/07/18 11:45 10/07/18 11:58 10/07/18 11:45 10/07/18 11:58 10/07/18 11:45 Plan Activity: advance as tolerated Weight Bearing Status: Weight Bear as Tolerated Diet: diabetic Wound: per wound nurse instructions Follow up with: PRIMARY CAREMD [Referring] - 3-5 Days JAX ACEVES MD [Staff Physician] - 14 Days Prescriptions: Sulfamethoxazole/Trimethoprim [Bactrim DS TAB] 1 each PO Q12HR 14 Days #28 tablet HYDROcodone/APAP 5-325 [[place] 5-325 mg TAB] 1 each PO Q6HR PRN #20 tablet PRN Reason: Pain , Severe (7-10)
[2018-10-07 17:23] VITALS: BP 117/60
== END 2018-10-07 18:28 | disposition home health service (06) | DRG 271 ==
LOC: ED 10:59 → 3A 13:07
PROVIDERS: ADMIT Internal Medicine; ATTEND Internal Medicine
PROC: 04CS3ZZ Extirpation of Matter from Left Posterior Tibial Artery, Percutaneous Approach (ICD-10-PCS; principal; 2018-10-05)
PROC: 047S3ZZ Dilation of Left Posterior Tibial Artery, Percutaneous Approach (ICD-10-PCS; 2018-10-05)
PROC: B41D1ZZ Fluoroscopy of Aorta and Bilateral Lower Extremity Arteries using Low Osmolar Contrast (ICD-10-PCS; 2018-10-05)
PROC: 04CU3ZZ Extirpation of Matter from Left Peroneal Artery, Percutaneous Approach (ICD-10-PCS; 2018-10-05)
PROC: 047U3ZZ Dilation of Left Peroneal Artery, Percutaneous Approach (ICD-10-PCS; 2018-10-05)
DX: I74.3 Embolism and thrombosis of arteries of the lower extremities (principal); L03.116 Cellulitis of left lower limb; E44.0 Moderate protein-calorie malnutrition; Z68.1 Body mass index [BMI] 19.9 or less, adult; F17.213 Nicotine dependence, cigarettes, with withdrawal; B95.61 Methicillin susceptible Staphylococcus aureus infection as the cause of diseases classified elsewhere; K74.60 Unspecified cirrhosis of liver; L97.522 Non-pressure chronic ulcer of other part of left foot with fat layer exposed; I10 Essential (primary) hypertension; J44.9 Chronic obstructive pulmonary disease, unspecified; Z82.49 Family history of ischemic heart disease and other diseases of the circulatory system; Z91.19 Patient's noncompliance with other medical treatment and regimen; Z79.82 Long term (current) use of aspirin; Z79.899 Other long term (current) drug therapy; Z71.6 Tobacco abuse counseling
CPT/HCPCS: 36415; 37229; 71045; 75625; 75710; 76937; 80048; 80053; 80076; 80307; 81001; 82140; 82550; 82553; 83735; 83880; 84484; 85025; 85347; 85610; 85730; 87076; 87086; 87116; 87186; 93005; 93010; 93925; 96365; 96375; G0378; C1724; C1725; C1769; C1887; J0692; J1644; J1650; J2250; J2270; J2720; J3010; J3370; J7030; J7050; J7060; Q9967

== ENCOUNTER 2018-10-13 07:53 | Outpatient (CLI) | payer MEDICARE ==
[2018-10-13] MEDS ORDERED: XYLOCAINE TOPICAL 4% TP ONE (09:00)
[2018-10-13] MEDS ORDERED: AD OINTMENT TP SCH (09:00)
== END 2018-10-13 07:54 | disposition home or self-care (01) ==
LOC: WOUND 07:53
PROVIDERS: ATTEND Surgery
DX: I87.312 Chronic venous hypertension (idiopathic) with ulcer of left lower extremity (principal); L97.522 Non-pressure chronic ulcer of other part of left foot with fat layer exposed; I77.6 Arteritis, unspecified; L84 Corns and callosities; I73.9 Peripheral vascular disease, unspecified; I87.2 Venous insufficiency (chronic) (peripheral); J44.9 Chronic obstructive pulmonary disease, unspecified; F17.210 Nicotine dependence, cigarettes, uncomplicated; Z86.718 Personal history of other venous thrombosis and embolism
CPT/HCPCS: 11042; G0463; 99215

== ENCOUNTER 2018-10-20 08:19 | Outpatient (CLI) | payer MEDICARE ==
[2018-10-20] MEDS ORDERED: XYLOCAINE TOPICAL 4% TP ONE (09:00)
== END 2018-10-20 08:20 | disposition home or self-care (01) ==
LOC: WOUND 08:19
PROVIDERS: ATTEND Surgery
DX: I87.312 Chronic venous hypertension (idiopathic) with ulcer of left lower extremity (principal); L97.522 Non-pressure chronic ulcer of other part of left foot with fat layer exposed; I77.6 Arteritis, unspecified; L84 Corns and callosities; I73.9 Peripheral vascular disease, unspecified; J44.9 Chronic obstructive pulmonary disease, unspecified; F17.210 Nicotine dependence, cigarettes, uncomplicated; Z86.718 Personal history of other venous thrombosis and embolism

== ENCOUNTER 2018-10-27 08:45 | Outpatient (CLI) | payer MEDICARE ==
[2018-10-27] MEDS ORDERED: AD OINTMENT TP PRN (09:30)
[2018-10-27] MEDS ORDERED: XYLOCAINE TOPICAL 4% TP ONE (09:30)
[2018-10-27] MEDS ORDERED: SILVER NITRATE TP ONE (09:30)
== END 2018-10-27 08:46 | disposition home or self-care (01) ==
LOC: WOUND 08:45
PROVIDERS: ATTEND Surgery
DX: I87.312 Chronic venous hypertension (idiopathic) with ulcer of left lower extremity (principal); L97.522 Non-pressure chronic ulcer of other part of left foot with fat layer exposed; I77.6 Arteritis, unspecified; L84 Corns and callosities; I73.9 Peripheral vascular disease, unspecified; J44.9 Chronic obstructive pulmonary disease, unspecified; F17.210 Nicotine dependence, cigarettes, uncomplicated; Z86.718 Personal history of other venous thrombosis and embolism
CPT/HCPCS: A6250

== ENCOUNTER 2018-11-10 09:22 | Outpatient (CLI) | payer MEDICARE ==
[2018-11-10] MEDS ORDERED: LIDOCAINE (4%) 40 MG/ML TOPICAL SOLN 50 ML BOTTLE TP ONE (09:34)
== END 2018-11-10 09:23 | disposition home or self-care (01) ==
LOC: WOUND 09:22
PROVIDERS: ATTEND Surgery
DX: I87.312 Chronic venous hypertension (idiopathic) with ulcer of left lower extremity (principal); L97.522 Non-pressure chronic ulcer of other part of left foot with fat layer exposed; I77.6 Arteritis, unspecified; L84 Corns and callosities; I73.9 Peripheral vascular disease, unspecified; J44.9 Chronic obstructive pulmonary disease, unspecified; F17.210 Nicotine dependence, cigarettes, uncomplicated; Z86.718 Personal history of other venous thrombosis and embolism
CPT/HCPCS: 11042; G0463; 99212

== ENCOUNTER 2018-11-17 09:35 | Outpatient (CLI) | payer MEDICARE | END 2018-11-17 09:36 | disposition home or self-care (01) | LOC: WOUND 09:35 | PROVIDERS: ATTEND Surgery | DX: I87.312 Chronic venous hypertension (idiopathic) with ulcer of left lower extremity (principal); L97.522 Non-pressure chronic ulcer of other part of left foot with fat layer exposed; L97.821 Non-pressure chronic ulcer of other part of left lower leg limited to breakdown of skin; L95.9 Vasculitis limited to the skin, unspecified; I73.9 Peripheral vascular disease, unspecified; F17.210 Nicotine dependence, cigarettes, uncomplicated; Z86.718 Personal history of other venous thrombosis and embolism ==

== ENCOUNTER 2018-11-24 09:52 | Outpatient (CLI) | payer MEDICARE ==
[2018-11-24] MEDS ORDERED: AD OINTMENT TP PRN (10:04)
[2018-11-24] MEDS ORDERED: XYLOCAINE TOPICAL 4% TP ONE (10:04)
== END 2018-11-24 09:53 | disposition home or self-care (01) ==
LOC: WOUND 09:52
PROVIDERS: ATTEND Surgery
DX: I87.312 Chronic venous hypertension (idiopathic) with ulcer of left lower extremity (principal); L97.522 Non-pressure chronic ulcer of other part of left foot with fat layer exposed; L95.9 Vasculitis limited to the skin, unspecified; F17.210 Nicotine dependence, cigarettes, uncomplicated; I10 Essential (primary) hypertension; I73.9 Peripheral vascular disease, unspecified; I87.2 Venous insufficiency (chronic) (peripheral); J44.9 Chronic obstructive pulmonary disease, unspecified; Z86.718 Personal history of other venous thrombosis and embolism
CPT/HCPCS: A6250

== ENCOUNTER 2018-12-01 09:36 | Outpatient (CLI) | payer MEDICARE ==
[2018-12-01] MEDS ORDERED: XYLOCAINE TOPICAL 4% TP ONE (10:00)
== END 2018-12-01 09:37 | disposition home or self-care (01) ==
LOC: WOUND 09:36
PROVIDERS: ATTEND Surgery
DX: I87.312 Chronic venous hypertension (idiopathic) with ulcer of left lower extremity (principal); L97.522 Non-pressure chronic ulcer of other part of left foot with fat layer exposed; L95.9 Vasculitis limited to the skin, unspecified; F17.210 Nicotine dependence, cigarettes, uncomplicated; I10 Essential (primary) hypertension; I73.9 Peripheral vascular disease, unspecified; I87.2 Venous insufficiency (chronic) (peripheral); J44.9 Chronic obstructive pulmonary disease, unspecified; Z86.718 Personal history of other venous thrombosis and embolism

== ENCOUNTER 2018-12-08 09:38 | Outpatient (CLI) | payer MEDICARE | END 2018-12-08 09:39 | disposition home or self-care (01) | LOC: WOUND 09:38 | PROVIDERS: ATTEND Surgery | DX: I87.312 Chronic venous hypertension (idiopathic) with ulcer of left lower extremity (principal); L97.528 Non-pressure chronic ulcer of other part of left foot with other specified severity; L95.9 Vasculitis limited to the skin, unspecified; I10 Essential (primary) hypertension; I73.9 Peripheral vascular disease, unspecified; I87.2 Venous insufficiency (chronic) (peripheral); J44.9 Chronic obstructive pulmonary disease, unspecified; F17.220 Nicotine dependence, chewing tobacco, uncomplicated; Z86.718 Personal history of other venous thrombosis and embolism ==